=== PATIENT | female | born 1940 | race Caucasian/White ===

== ENCOUNTER 2019-03-18 06:54 | Day surgery (SDC) | payer MEDICARE, SELFPAY | END 2019-03-18 08:33 | disposition home or self-care (01) | PROVIDERS: Family Provider Family Medicine; Visit Provider Surgery | DX: Z12.11 Encounter for screening for malignant neoplasm of colon (principal); K57.30 Diverticulosis of large intestine without perforation or abscess without bleeding; D12.2 Benign neoplasm of ascending colon; G47.30 Sleep apnea, unspecified; I10 Essential (primary) hypertension; K21.9 Gastro-esophageal reflux disease without esophagitis; E78.5 Hyperlipidemia, unspecified; M19.90 Unspecified osteoarthritis, unspecified site; Z90.49 Acquired absence of other specified parts of digestive tract; E03.9 Hypothyroidism, unspecified; Z79.891 Long term (current) use of opiate analgesic; Z79.82 Long term (current) use of aspirin; G47.33 Obstructive sleep apnea (adult) (pediatric); Z83.3 Family history of diabetes mellitus; Z82.49 Family history of ischemic heart disease and other diseases of the circulatory system; M06.9 Rheumatoid arthritis, unspecified; Z87.891 Personal history of nicotine dependence | CPT/HCPCS: 45380; 88305; J2704 ==

== ENCOUNTER 2019-06-29 08:45 | Outpatient (RCR) | payer MEDICARE, SELFPAY | END 2019-07-21 00:01 | LOC: SPT 08:45 | PROVIDERS: Family Provider Family Medicine; Visit Provider Specialist | DX: Z47.89 Encounter for other orthopedic aftercare (principal) | CPT/HCPCS: 97140 ×7; 97161 ==

== ENCOUNTER 2019-07-22 06:00 | Outpatient (RCR) | payer MEDICARE, SELFPAY | END 2019-08-21 23:59 | disposition home or self-care (01) | LOC: SPT 06:00 | PROVIDERS: Family Provider Family Medicine; PCP Family Medicine; Visit Provider Family Medicine | DX: Z47.1 Aftercare following joint replacement surgery (principal); Z96.611 Presence of right artificial shoulder joint | CPT/HCPCS: 97110; 97140 ==

== ENCOUNTER → 2019-08-03 15:16 | Outpatient (BNVA) | payer MEDICARE, SELFPAY | PROVIDERS: Family Provider Family Medicine; PCP Family Medicine; Visit Provider Specialist | DX: Z96.611 Presence of right artificial shoulder joint (principal) | CPT/HCPCS: 73030 ==

== ENCOUNTER 2019-08-19 07:51 | Outpatient (CLI) | payer MEDICARE, SELFPAY ==
--- NOTE | 2019-08-19 07:57 | US_ITS ---
WS: [id number] ULTRASOUND THYROID TECHNIQUE: Ultrasound of the thyroid. CLINICAL INFORMATION: THYROID NODULE COMPARISON: August 21, 2018 FINDINGS: Thyroid: Right and left thyroid lobes are enlarged and heterogeneous consistent with goiter. Multinod ular thyroid gland with multiple complex cystic and solid nodules. Calcified nodule in the thyroid is thmus is stable in appearance. Right thyroid lobe: 3.4 cm x 1.3 cm x 2.0 cm Largest nodule in the right lobe measures 1.0 x 0.5 x 1.0 cm Left thyroid lobe: 3.8 cm x 1.7 cm x 1.8 cm. Largest nodule in the left thyroid measures 1.1 x 0.7 x 1.0 CM Isthmus: 0.4 mm. Cervical lymphadenopathy: None. US/US thyroid 40996 IMPRESSION: Thyroid goiter with multiple cystic and solid nodules similar in appearance to the prior examination
== END 2019-08-19 07:52 | disposition home or self-care (01) ==
LOC: US 07:55
PROVIDERS: Family Provider Family Medicine; PCP Family Medicine; Visit Provider Family Medicine
DX: E04.2 Nontoxic multinodular goiter (principal)
CPT/HCPCS: 76536

== ENCOUNTER 2019-08-22 06:00 | Outpatient (RCR) | payer MEDICARE, SELFPAY | END 2019-09-19 23:59 | disposition home or self-care (01) | LOC: SPT 06:00 | PROVIDERS: Family Provider Family Medicine; PCP Family Medicine; Visit Provider Family Medicine | DX: Z47.1 Aftercare following joint replacement surgery (principal); Z96.611 Presence of right artificial shoulder joint; M25.511 Pain in right shoulder; M25.611 Stiffness of right shoulder, not elsewhere classified | CPT/HCPCS: 97110 ==

== ENCOUNTER → 2019-08-31 13:32 | Outpatient (BNVA) | payer MEDICARE, SELFPAY | PROVIDERS: Family Provider Family Medicine; PCP Family Medicine; Visit Provider Specialist | DX: Z98.890 Other specified postprocedural states (principal) | CPT/HCPCS: 73030 ==

== ENCOUNTER 2019-09-20 06:00 | Outpatient (RCR) | payer MEDICARE, SELFPAY | END 2019-10-20 23:59 | disposition home or self-care (01) | LOC: SPT 06:00 | PROVIDERS: Family Provider Family Medicine; PCP Family Medicine; Visit Provider Family Medicine | DX: Z47.1 Aftercare following joint replacement surgery (principal); Z96.611 Presence of right artificial shoulder joint; M25.511 Pain in right shoulder; M25.611 Stiffness of right shoulder, not elsewhere classified | CPT/HCPCS: 97110 ==

== ENCOUNTER 2019-10-21 06:00 | Outpatient (RCR) | payer MEDICARE, SELFPAY | END 2019-11-19 23:59 | disposition home or self-care (01) | LOC: SPT 06:00 | PROVIDERS: Family Provider Family Medicine; PCP Family Medicine; Visit Provider Family Medicine | DX: Z47.89 Encounter for other orthopedic aftercare (principal); Z96.611 Presence of right artificial shoulder joint | CPT/HCPCS: 97110 ==

== ENCOUNTER → 2019-10-26 12:36 | Outpatient (BNVA) | payer MEDICARE, SELFPAY | PROVIDERS: Family Provider Family Medicine; PCP Family Medicine; Visit Provider Specialist | DX: Z98.890 Other specified postprocedural states (principal); Z96.611 Presence of right artificial shoulder joint | CPT/HCPCS: 73030 ==

== ENCOUNTER 2019-11-20 06:00 | Outpatient (RCR) | payer MEDICARE, SELFPAY | END 2019-12-20 23:59 | disposition home or self-care (01) | LOC: SPT 06:00 | PROVIDERS: PCP Family Medicine; Visit Provider Family Medicine | DX: Z47.1 Aftercare following joint replacement surgery (principal); Z96.611 Presence of right artificial shoulder joint; M25.511 Pain in right shoulder; M25.611 Stiffness of right shoulder, not elsewhere classified | CPT/HCPCS: 97110 ==

== ENCOUNTER 2019-12-21 06:00 | Outpatient (RCR) | payer MEDICARE, SELFPAY | END 2020-01-19 23:59 | disposition home or self-care (01) | LOC: SPT 06:00 | PROVIDERS: PCP Family Medicine; Visit Provider Family Medicine | DX: Z47.89 Encounter for other orthopedic aftercare (principal); Z96.611 Presence of right artificial shoulder joint | CPT/HCPCS: 97110 ==

== ENCOUNTER → 2020-01-11 08:12 | Outpatient (BNVA) | payer MEDICARE, SELFPAY | PROVIDERS: PCP Family Medicine; Visit Provider Specialist | DX: M25.531 Pain in right wrist (principal) | CPT/HCPCS: 73110 ==

== ENCOUNTER 2020-01-20 06:00 | Outpatient (RCR) | payer MEDICARE, SELFPAY | END 2020-02-19 23:59 | disposition home or self-care (01) | LOC: SPT 06:00 | PROVIDERS: PCP Family Medicine; Visit Provider Family Medicine | DX: Z47.89 Encounter for other orthopedic aftercare (principal); Z96.611 Presence of right artificial shoulder joint | CPT/HCPCS: 97110 ==

== ENCOUNTER 2020-02-02 09:18 | Outpatient (CLI) | payer MEDICARE, SELFPAY ==
--- NOTE | 2020-02-02 09:26 | MM_ITS ---
WS: [id number] Bilateral diagnostic digital mammogram, 02/02/2020 Clinical Data: Right breast lump Comparison: 11/25/2018, 11/21/2017, 11/19/2016, 11/17/2015, 11/15/2014, 11/05/2013, 11/04/2012, 09/12/2011, 09/11, 09/01/2009, 08/31/2008, 08/27/2007, 07/23/2006. Findings: The breast parenchyma shows fat replacement. The left breast is normal. There is a marker in the uppe r outer quadrant of the right breast but no abnormalities are seen. There are no spiculated masses or clustered calcifications. There are no secondary signs of carcinoma. MM/[place] [id number] Impression: 1. Recommend additional views of the right breast including an ML and exaggera camron CC. 2. Recommend right breast ultrasound in the upper outer quadrant. BIRADS: 0-Incomplete: Need additional imaging evaluation FOLLOW UP: See Report The CAD controlled area checker was used.
== END 2020-02-02 09:19 | disposition home or self-care (01) ==
LOC: RADSHAW 09:23
PROVIDERS: PCP Family Medicine; Visit Provider Family Medicine
DX: Z12.31 Encounter for screening mammogram for malignant neoplasm of breast (principal); N63.10 Unspecified lump in the right breast, unspecified quadrant
CPT/HCPCS: 77067

== ENCOUNTER 2020-02-03 09:03 | Outpatient (CLI) | payer MEDICARE, SELFPAY ==
--- NOTE | 2020-02-03 13:00 | PC.NURSE ---
0900 Patient here for Covid pre op testing. Patient verified via name and date of . Full PPE in place to include goggles, gloves, gown and N95 mask. Specimen collected, labeled and taken to lab. Patient tolerated procedure well.
[2020-02-04 13:30] LABS: Coronavirus Lab Test PTC Negative
== END 2020-02-03 09:04 | disposition home or self-care (01) ==
PROVIDERS: PCP Family Medicine; Visit Provider Specialist
DX: Z01.812 Encounter for preprocedural laboratory examination (principal)
CPT/HCPCS: 87635

== ENCOUNTER 2020-02-05 08:05 | Day surgery (SDC) | payer MEDICARE, SELFPAY ==
[2020-02-04 07:12] VITALS: BMI 34.0
[2020-02-04 14:29] VITALS: BMI 34.0
[2020-02-05 08:38] VITALS: BP 199/84; PULSE 51; RESP 18; TEMP 36.1; O2SAT 98
[2020-02-05] MEDS: sodium chloride 0.9% 1,000 ML 30 ML IV (08:48)
[2020-02-05] MEDS: CELEcoxib 200 mg Capsule 400 MG PO (08:49)
--- NOTE | 2020-02-05 09:39 | ANES.PREANE2 ---
Pre-Anesthetic Assessment Pre-Anesthetic Assessment: Height/Weight: Height 1.7 m Weight 98.43 kg Temp Pulse Resp BP Pulse Ox 96.9 F L 51 L 18 199/84 98 02/05/20 08:38 02/05/20 08:38 02/05/20 08:38 02/05/20 08:38 02/05/20 08:38 Preop Diagnosis: Right de Quervain's and long trigger finger Proposed Procedure: Operation Date: 02/05/20 09:20 Proposed Procedures p Long Trigger Finger Release 97163 57570 M65.4 M65.331(Right) - Shelley Romeo MD s Dequervain Release(Right) - Shelley Romeo MD Familial anesthetic complications: none Was Beta Samia taken within 24 hours: Yes Last intake: Intake Last Liquid Date 02/04/20 Last Liquid Time 19:00 Last Solid Date 02/04/20 Last Solid Time 19:00 Last Intake: 06:30 Social: Social History: No alcohol and No tobacco Exam: Pre-Anes Outpt Exam: alert, oriented x 3, clear to auscultation bilaterally and regular rate & rhythm Airway: Submandibular: WNL Cervical ROM: WNL MP: 1 Dentition: Full Pulmonary: Pulmonary: Sleep apnea (CPAP) CV/HEM: CV/HEM: HTN : : None reported Hepatic: Hepatic: None reported GI: GI: GERD (controlled) Metabolic: Metabolic: Hyperlipidemia and Thyroid Musc/skel: Musc/skel: OA/DJD Neuropsych: Neuropsych: None reported Anesthetic Plan: ASA status: 2 Anesthesia: Eval. for regional block and MAC Risk of > 500 ml blood loss (7ml/kg in children): No Meds/Allergies Current Medications: Current Medications Generic Name Dose Route Start Last Admin Trade Name Freq PRN Reason Stop Dose Admin Sodium Chloride 1,000 mls @ 30 ml s/hr 02/05/20 08:15 02/05/20 08:48 Sodium Chloride 0.9% IV 02/06/20 08:14 30 mls/hr .Q24H TOMAS Administration PFSH Anesthesia PFSH: Medical History Diverticulitis Primary osteoarthritis of right shoulder Venous insufficiency Ventral incisional hernia Surgical History Status post reverse total arthroplasty of right shoulder Social History Smoking and tobacco status: former smoker Alcohol intake: never Data Anesthesia Cardiac Studies: No Data to Display
[2020-02-05 11:01] VITALS: BP 166/71; PULSE 53; RESP 18; TEMP 36.1; O2SAT 95
--- NOTE | 2020-02-05 11:05 | ANE.PACU2 ---
Inpatient post-anesthesia follow up: Airway intact: Yes Vital signs: Temperature 96.9 F Pulse Rate 51 Respiratory Rate 18 Blood Pressure 199/84 Pulse Oximetry 98 Oxygen Delivery Me thod Room Air Oxygen Flow Rate Fraction of Inspir ed Oxygen Hydration adequate: Yes Nausea and vomiting: No Pain level: 1 Mental status: Baseline
--- NOTE | 2020-02-05 11:17 | PM.OP ---
Operative Report Date of procedure: February 05, 2020 Pre-op Diagnosis: Right de Quervain's and long trigger finger Associated Problem List Diagnoses (1) De Quervain's tenosynovitis, right: (2) Trigger finger, right middle finger:
[2020-02-05 11:25] VITALS: BP 185/70; PULSE 47; RESP 18; O2SAT 97
--- NOTE | 2020-02-05 11:25 | P.OP_ITS ---
Operative Report Date of procedure: February 05, 2020 Pre-op Diagnosis: Right de Quervain's and long trigger finger Post-op diagnosis: same Post-op Findings: Very inflamed de Quervain's canal Procedure Done: Right de Quervain's tenosynovitis release with release right long trigger finger Specimens removed/disposition: None Pathology: none sent Surgeon: Shelley Romeo Anesthesia: MAC (With [place] block) Estimated blood loss (mL): 5 Tourniquet time (min): 49 IV fluids (mL): 400 Urine output (mL): 0 Urine output: No Goldberg Complications: None Condition: stable Disposition: same day Brief History: This 79-year-old woman presented with complaints of severe pain in the right wrist. She also had triggering of the right long finger which was quite painful as well. After discussion, the patient wished to proceed with de Quervain's tenosynovitis release as well as release of the right long finger triggering. Risks and complications were discussed with her. She understood and wished to proceed. Procedure: Patient was brought to the operating theater. She was placed on the operating room table. A Agustin block supplemented with MAC anesthesia was administered without difficulty. Patient tolerated it well. A tourniquet was placed high on the arm and was elevated for the [place] block. The [place] block was administered per anesthesia. The patient's right upper extremity was prepped and draped in usual fashion utilizing DuraPrep. It was draped free. Tourniquet time was 49 minutes. Surgical pause was performed prior to commencement of the surgical procedure. At the time of the surgical pause we identified the site and side of surgery. We also identified the patient's identity and appropriate administration of IV antibiotics. The radial styloid was palpated and an incision was made horizontally approximately 1 cm proximal to the tip of the radial styloid. Dissection continued through the skin and dermis but following that soft tissue blunt dissection was accomplished to prevent injury to the superficial radial nerve branches in the area. We were able to retract these branches and the first dorsal compartment was visualized. The fibrous tissue over the first dorsal compartment was noted to be quite thickened and erythematous. This was released longitudinally using a combination of scalpel and scissors. We then confirmed that each of the tendons at been released. There were 2 abductor pollicis longus tendons and one extensor pollicis brevis tendon. All of these were released at least a centimeter distal to the radial styloid and proximally as well. There was no further compression across the tendons. The tendons were pulled up out of the tunnel for evaluation. Following this, the wound was irrigated. Attention was then directed to closure. Closure was accomplished with 3-0 Monocryl as a subcuticular suture was placed in a running fashion. We injected the wound with local anesthetic. This was followed by Exofin, Telfa and a Tegaderm. An incision then was made along the distal palmar crease beneath the long finger. Dissection continued through the skin to the subcutaneous tissues using a scalpel. Blunt dissection was then utilized to spread soft tissues and allow access to the A1 ernie. The A1 ernie was identified. It was then incised longitudinally and sharply using a knife. This was accomplished without difficulty and atraumatically. Once the A1 ernie was released, tendons were brought up out of the wound and evaluated. There were no gross masses on the tendons. Tendons were returned to normal position. We then irrigated the wound and subsequently closed it with 3-0 nylon with an interrupted mattress type suture. We injected the wound with local anesthetic. This was followed by Exofi n, Telfa and a Tegaderm. Further sterile dressing was then placed consisting of fluffed fluffs, sterile soft roll, and an Bobo wrap. The patient was returned to recovery in satisfactory condition. She will be discharged home to follow-up with me in the office. There were no complications and no specimens. Associated Problem List Diagnoses (1) De Quervain's tenosynovitis, right: (2) Trigger finger, right middle finger:
--- NOTE | 2020-02-08 11:39 | P.HPUD_ITS ---
Surgery/Procedure H&P Update DATE OF PROCEDURE: February 05, 2020 DATE H&P PERFORMED: 02/01/20 H&P UPDATE INFORMATION: I have reviewed H&P completed within last 30 days, Changes to prior documentation as noted here and H&P is in [facility] EMR on date indicated PREOP DIAGNOSIS: Right de Quervain's and long trigger finger PLANNED PROCEDURE: Operation Date: 02/05/20 09:20 Proposed Procedures p Long Trigger Finger Release [id number] 99048 M65.4 M65.331(Right) - Shelley Romeo MD s Dequervain Release(Right) - Shelley Romeo MD Related Problem List Diagnoses (1) De Quervain's tenosynovitis, right: (2) Trigger finger, right middle finger:
== END 2020-02-05 11:47 | disposition home or self-care (01) ==
PROVIDERS: PCP Family Medicine; Visit Provider Specialist
PROC: (CPT 26055; principal; 2020-02-05 09:20)
PROC: (CPT 25000; 2020-02-05 09:20)
DX: M65.4 Radial styloid tenosynovitis [de Quervain] (principal); M65.331 Trigger finger, right middle finger; G47.30 Sleep apnea, unspecified; I10 Essential (primary) hypertension; K21.9 Gastro-esophageal reflux disease without esophagitis; E78.5 Hyperlipidemia, unspecified; M19.90 Unspecified osteoarthritis, unspecified site; Z87.891 Personal history of nicotine dependence; Z79.82 Long term (current) use of aspirin
CPT/HCPCS: 25000; 26055; 12345; 96365; J0131; J2704; J3010; J3490; J7030

== ENCOUNTER 2020-02-17 07:37 | Outpatient (CLI) | payer MEDICARE, SELFPAY ==
--- NOTE | 2020-02-17 07:38 | US_ITS ---
WS: [id number] ADDITIONAL VIEWS RIGHT BREAST RIGHT breast ultrasound, limited HISTORY: RT BREAST MASS COMPARISON: None available. Compression views right CC and MLO projection. True ML also submitted. Triangular marker is placed at the RIGHT axillary tail. There is no mass. Benign lymph nodes are note d towards the axilla posteriorly. No suspicious calcifications or distortion. RIGHT breast ultrasound. Ultrasound is directed to the palpable abnormality. No suspicious masses or distortion. No solid or c ystic changes. US/US breast RT limited* [id number] IMPRESSION: BI-RADS: 2-Benign FOLLOW-UP: 1 Year Follow-up
== END 2020-02-17 07:38 | disposition home or self-care (01) ==
PROVIDERS: PCP Family Medicine; Visit Provider Family Medicine
DX: N63.10 Unspecified lump in the right breast, unspecified quadrant (principal)
CPT/HCPCS: 76642; 77065

== ENCOUNTER 2020-02-20 06:00 | Outpatient (RCR) | payer MEDICARE, SELFPAY | END 2020-03-21 23:59 | disposition home or self-care (01) | LOC: SPT 06:00 | PROVIDERS: PCP Family Medicine; Visit Provider Family Medicine | DX: Z96.611 Presence of right artificial shoulder joint (principal) | CPT/HCPCS: 97110; 97150 ==

== ENCOUNTER 2020-03-29 13:17 | Observation (INO) | payer MEDICARE, SELFPAY ==
[2020-03-29] VITALS (12 sets, daily range): BP systolic 138–221; BP diastolic 65–102; PULSE 58–78; RESP 16–23; TEMP 36.4–37.2; O2SAT 95–98; BMI 32.8
--- NOTE | 2020-03-29 13:28 | XRR_ITS ---
PROCEDURE INFORMATION: Exam: XR Chest, 1 View Exam date and time: 03/29/2020 2:06 PM Age: 79 years old Clinical indication: Chest pain TECHNIQUE: Imaging protocol: XR of the chest Views: 1 view. COMPARISON: CR Chest 1 [place] [id number] 11/01/2013 8:56 PM FINDINGS: Lungs: Unremarkable. No consolidation. Pleural space: Unremarkable. No pleural effusion. No pneumothorax. Heart/Mediastinum: Unremarkable. No cardiomegaly. Bones/joints: No acute findings. Bilateral shoulder prosthetics. XR/XR chest 1V portable [id number] IMPRESSION: No acute findings.
--- NOTE | 2020-03-29 13:30 | ECG_ITS ---
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 Measurements Intervals [place] Rate: 63 P: 11 MS: 119 QRS: 29 QRSD: 106 T: 47 QT: 390 QTc: 400 Interpretive Statements SINUS RHYTHM WITH SHORT MS INTERVAL WITH OCCASIONAL VENTRICULAR PREMATURE COMPLEXES Compared to ECG 06/05/2019 12:52:48 Short MS interval now present Sinus bradycardia no longer present Electronically Signed On 03-29-2020 17:01:56 CDT by Mecca Lemus M.D. [id number] f
--- NOTE | 2020-03-29 13:50 | W.ED.CHESTPA ---
HPI - Chest Pain General: Chief Complaint: Chest Pain Stated Complaint: cardiac symptoms Time Seen by Provider: 03/29/20 13:28 History of Present Illness: HPI narrative: 79-year-old female was exercising at physical therapy and began to have chest pain in the center of her chest it is nonradiating does not make her nausea but nauseous but it is causing her to be somewhat dyspneic. She has been having this intermittently for some time and she has a stress test scheduled. She has risk factors of age and history of hypertension she is not diabetic. No previous coronary artery disease. The chest pain episodes have been increasing in intensity and frequency over the last several weeks. MD complaint: chest pain Onset (ago): minute(s) Timing of current episode: episodic and increasing Prior episodes: Yes Onset: during exertion Pain location: substernal and left chest Severity: moderate Quality: heaviness Relieving factors: rest Exacerbating factors: exertion Associated symptoms: Reports diaphoresis, dyspnea and nausea; Deny abdominal pain, fever(s), leg edema, palpitations or vomiting Treatment prior to arrival: none Review of Systems Const: Reports: diaphoresis; Denies: fever(s) ENMT: Denies: throat pain, ear or mastoid pain, nasal discharge or nasal congestion Card: Denies: palpitations Resp: Reports: dyspnea GI: Reports: nausea; Denies: abdominal pain or vomiting : Denies: flank pain, difficulty voiding, dysuria, urinary frequency or urinary urgency Skin/Breast: Denies: rash or pruritus PFSH ED PFSH: Medical History De Quervain's tenosynovitis, right Diverticulitis Hyperlipidemia Hypertension Primary osteoarthritis of right shoulder Trigger finger, right middle finger Venous insufficiency Ventral incisional hernia Surgical History Status post reverse total arthroplasty of right shoulder Social History Smoking and tobacco status: former smoker Alcohol intake: never Physical Exam Const: COMMON NORMALS: no acute distress GENERAL APPEARANCE: cooperative and comfortable ORIENTATION/CONSCIOUSNESS: Yes awake, Yes oriented to person, Yes oriented to place and Yes oriented to time HENMT: COMMON NORMALS: normocephalic, atraumatic and hearing grossly normal bilaterally HEAD & SCALP: normocephalic and atraumatic Eye: COMMON NORMALS: Equal, round and reactive pupils present, EOMs intact bilaterally, conjunctivae normal and no scleral icterus CONJUNCTIVA: Yes conjunctivae normal PUPIL: Yes Equal, round and reactive pupils present Neck/C-Spine: COMMON NORMALS: full ROM, no lymphadenopathy, supple and no JVD Lymph: LYMPHATIC: no lymphadenopathy noted and no lymphedema noted Resp: COMMON NORMALS: normal respiratory effort, No retractions, No use of accessory muscles and clear to auscultation bilaterally AUSCULTATION: clear to auscultation bilaterally Cardio: COMMON NORMALS: no JVD, regular rate, regular rhythm and No murmurs present (Cardio) RATE: regular rate RHYTHM: regular rhythm GI: COMMON NORMALS: Soft to palpation and No hepatosplenomegaly present AUSCULTATION: Yes normoactive bowel sounds PALPATION: Yes Soft to palpation, No Tenderness to palpation present (GI), No Guarding due to palpation present (GI) and Yes No hepatosplenomegaly present Extremity: COMMON NORMALS: normal to inspection, capillary refill normal, no clubbing, cyanosis or edema, no calf tenderness and no pedal edema Neuro: SENSORIUM/ORIENTATION: Yes oriented to person, Yes oriented to place and Yes oriented to time Skin: COMMON NORMALS: no rashes or lesions noted GENERAL SKIN EXAM: no rashes or lesions noted Course Vital Signs: Vital signs: Vital Signs Temperature 99.2 F 03/30/20 17:25 Pulse Rate 64 03/30/20 17:25 Respiratory Rate 16 03/30/20 17:25 Blood Pressure 142/64 03/30/20 17:25 Pulse Oximetry 95 03/30/20 17:25 MDM - Chest Pain MDM Narrative: Medical decision making narrative: Discussed with Dr. Chaparro will admit for rule out and cardiac evaluation he will be attending orders have been written. Lab Data: Labs: Lab Results 03/29/20 03/29/20 03/29/20 Range/Units 13:55 13:55 13:55 WBC 7.8 (4.0-10.0) 10^3/ uL RBC 4.56 (4.1-5.3) 10^6/u L Hgb 13.5 (11.5-15.3) g/dL Hct 42.3 (37.0-47.0) % MCV 92.8 (81-99) fL MCH 29.6 (28.0-34.0) pg MCHC 31.9 (30.0-36.0) g/dL RDW 13.4 (12.1-15.1) % Plt Count 210 (130-400) 10^3/c mm MPV 10.0 (7.4-10.4) fL Neut % (Auto) 60.8 % Lymph % (Auto) 29.3 % [place] % (Auto) 7.7 % Eos % (Auto) 1.7 % Baso % (Auto) 0.4 % Neut # (Auto) 4.71 (1.8-7.7) 10^3/u L Lymph # (Auto) 2.3 (0.8-4.8) 10^3/u L [place] # (Auto) 0.6 (0.2-0.9) 10^3/u L Eos # (Auto) 0.1 (0.0-0.8) 10^3/u L Baso # (Auto) 0.0 (0.0-0.1) 10^3/u L Nucleated RBC % (a uto) 0 % Nucleated RBCs # 0.0 /100WBC Sodium 138 (136-145) mmol/L Potassium 4.3 (3.5-5.1) mmol/L Chloride 103 (98-107) mmol/L Carbon Dioxide 25 (22-29) mmol/L Anion Gap 14.3 (5-19) BUN 18 (8-23) mg/dL Creatinine 0.6 (0.5-0.9) mg/dL GFR Calculation Not Reportable Glucose 94 (65-115) mg/dL Calculated Osmolal ity 282 L (285-295) mOsm/k g Calcium 10.2 (8.5-10.5) mg/dL Total Bilirubin 0.8 (0.15-1.2) mg/dL AST 21 (0-32) U/L ALT 14 (0-33) U/L Alkaline Phosphata se 76 (35-105) IU/L Troponin T Baselin e 12 H (0-10) ng/L Total Protein 6.8 (6.6-8.7) g/dL Albumin 4.2 (3.5-5.2) g/dL Globulin 2.6 (1.3-4.6) g/dL Discharge Plan Discharge Patient Disposition: Admitted As Inpatient Admit Provider: Nader Sommer Condition: Stable Referrals: Nader Sommer MD [Primary Care Provider] - 1-3 days ([facility] will contact you to schedule an follow-up appointment for Saturday, . If you haven't heard from them by tomorrow afternoon. Please call ) Discharge Diet: Regular Discharge Activity: Resume usual activity Patient Instructions: Isosorbide Mononitrate (By mouth), Escitalopram (By mouth), Chest Pain (DC), Chest Pain Stoplight Additional Instructions: - Call clinic tomorrow to make an appointment for Sunday 04/01 - take all of your home medications the same - 2 new medications of Lexapro 10 mg once a day for stress; Isosorbide 30mg once a day - call if increased chest pain or pressure. Discharge Date/Time: 03/29/20 17:19 Coding Level of Care Code ED Polisher Eyeglass Frames for David Ahumada
[2020-03-29 14:11] LABS: Basophils % 0.4 %; Eosinophils # 0.1 10^3/uL (0.0-0.8); Eosinophils % 1.7 %; Hematocrit 42.3 % (37.0-47.0); Hemoglobin 13.5 g/dL (11.5-15.3); Lymphocytes # 2.3 10^3/uL (0.8-4.8); Lymphocytes % 29.3 %; Mean Corpuscular HGB Conc 31.9 g/dL (30.0-36.0); Mean Corpuscular Hemoglobin 29.6 pg (28.0-34.0); Mean Corpuscular Volume 92.8 fL (81-99); Monocytes # 0.6 10^3/uL (0.2-0.9); Monocytes % 7.7 %; Neutrophils # 4.71 10^3/uL (1.8-7.7); Neutrophils % 60.8 %; Nucleated Red Blood Cells % 0 %; Platelet Count 210 10^3/cmm (130-400); Red Blood Count 4.56 10^6/uL (4.1-5.3); Red Cell Distribution Width 13.4 % (12.1-15.1); White Blood Count 7.8 10^3/uL (4.0-10.0)
--- NOTE | 2020-03-29 14:26 | PC.NURSE ---
INFORMED DR. PAEZ OF BP OF 221/90 VERBALIZED THAT HE WOULD PUT MEDICATION IN TO [place] BP.
[2020-03-29] MEDS: amlodipine 10 mg Tablet PO (14:29)
[2020-03-29] MEDS: hyDRALAzine 20 mg/mL INJ 1 mL IVP (14:29)
[2020-03-29 14:33] LABS: Alanine Aminotransferase 14 U/L (0-33); Albumin Level 4.2 g/dL (3.5-5.2); Alkaline Phosphatase 76 IU/L (35-105); Anion Gap 14.3 (5-19); Aspartate Amino Transferase 21 U/L (0-32); Blood Urea Nitrogen 18 mg/dL (8-23); Calcium 10.2 mg/dL (8.5-10.5); Carbon Dioxide 25 mmol/L (22-29); Chloride 103 mmol/L (98-107); Globulin 2.6 g/dL (1.3-4.6); Glucose 94 mg/dL (65-115); Osmolality Calculated 282 mOsm/kg (285-295); Potassium 4.3 mmol/L (3.5-5.1); Sodium 138 mmol/L (136-145); Total Bilirubin 0.8 mg/dL (0.15-1.2); Total Protein 6.8 g/dL (6.6-8.7)
[2020-03-29 14:35] LABS: Troponin(5th) Baseline 12 ng/L (0-10)
--- NOTE | 2020-03-29 15:30 | ECG_ITS ---
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 Measurements Intervals [place] Rate: 60 P: 56 MI: 160 QRS: 34 QRSD: 110 T: 46 QT: 397 QTc: 399 Interpretive Statements SINUS RHYTHM Compared to ECG 03/29/2020 13:24:40 Short MI interval no longer present Electronically Signed On 03-29-2020 22:58:07 CDT by Mecca Lemus M.D. [id number]
[2020-03-29] MEDS: aspirin 81 mg Chew Tablet 324 MG PO (15:39)
[2020-03-29] MEDS: nitroglycerin 1 gm/inch oint Pkt 1 INCH TOPICAL (15:40)
[2020-03-29 16:09] LABS: Troponin 5 2HR 12.06 ng/L (0-10); Troponin 5 2HR Delta 0.06 ABS# (0-10)
--- NOTE | 2020-03-29 17:06 | PC.NURSE ---
ATTEMPTED REPORT NURSE UNAVAILABLE.
--- NOTE | 2020-03-29 19:23 | ECG_ITS ---
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 Interpretive Statements NAME OF STUDY: LEXISCAN SESTAMIBI STRESS TEST INDICATION: Chest Pain, ekg changes, NOTE: Please note that this is the electrocardiogram portion of the Lexiscan/Sestamibi stress test. The perfusion scan will be documented separately. DATA: Baseline heart rate was 87 beats per minute. Baseline blood pressure was 139/65 millimeters of mercury. Target heart rate was 143. Maximum heart rate achieved was 97. which was 67 % of the predicted target heart rate. Maximum blood pressure was millimeters of mercury. The reason for ending the test was completion of the protocol. The patient did not experience any symptoms. ELECTROCARDIOGRAM: BASELINE: Sinus rhythm. Normal axis. Frequent PVCs, otherwise no ST-T changes suggestive of ischemia noted. No arrhythmia noted. EXERCISE: After Lexiscan injection, no ST-T changes suggestive of ischemic noted. No arrhythmia noted. CONCLUSION: Please note due to baseline abnormality of the EKG specificity and sensitivity of the EKG portion of LexiScan MIBI stress test will be low 1. EKG not suggestive of ischemia 2. Lexiscan injection unremarkable. 3. Perfusion scan will be documented separately. Electronically Signed On 04-01-2020 16:51:39 CDT by Lm Lopez M.D. [email or web address].[employer]/store/OM/[id number]
--- NOTE | 2020-03-29 19:30 | ECG_ITS ---
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 Measurements Intervals [place] Rate: 62 P: 60 FL: 169 QRS: 44 QRSD: 106 T: 55 QT: 397 QTc: 404 Interpretive Statements SINUS RHYTHM Compared to ECG 03/29/2020 17:44:28 No significant changes Electronically Signed On 03-29-2020 22:47:51 CDT by Mecca Lemus M.D. [id number]
--- NOTE | 2020-03-29 20:23 | PC.NURSE ---
Called Dr. Sommer Regwillarding patient request for CPAP. Orders recieved for Cpap and use patients settings.
[2020-03-29 20:26] LABS: Troponin 5 6HR 13.93 ng/L (0-10); Troponin 5 6HR Delta 1.93 ng/L (0-12)
[2020-03-29] MEDS: losartan 50 mg Tablet 100 MG PO (21:49)
[2020-03-30] VITALS (7 sets, daily range): BP systolic 105–145; BP diastolic 48–79; PULSE 64–76; RESP 16–18; TEMP 36.5–37.3; O2SAT 93–96
[2020-03-30 05:09] LABS: Basophils % 0.2 %; Eosinophils # 0.1 10^3/uL (0.0-0.8); Hematocrit 40.3 % (37.0-47.0); Hemoglobin 13.2 g/dL (11.5-15.3); Lymphocytes % 20.6 %; Mean Corpuscular HGB Conc 32.8 g/dL (30.0-36.0); Mean Corpuscular Hemoglobin 29.6 pg (28.0-34.0); Mean Corpuscular Volume 90.4 fL (81-99); Mean Platelet Volume 10.6 fL (7.4-10.4); Monocytes # 0.7 10^3/uL (0.2-0.9); Monocytes % 7.3 %; Neutrophils # 6.73 10^3/uL (1.8-7.7); Neutrophils % 70.7 %; Nucleated Red Blood Cells % 0 %; Platelet Count 208 10^3/cmm (130-400); Red Blood Count 4.46 10^6/uL (4.1-5.3); Red Cell Distribution Width 13.6 % (12.1-15.1); White Blood Count 9.5 10^3/uL (4.0-10.0)
[2020-03-30 05:31] LABS: Alanine Aminotransferase 14 U/L (0-33); Albumin Level 4.1 g/dL (3.5-5.2); Alkaline Phosphatase 67 IU/L (35-105); Anion Gap 14.3 (5-19); Aspartate Amino Transferase 18 U/L (0-32); Blood Urea Nitrogen 19 mg/dL (8-23); Calcium 9.3 mg/dL (8.5-10.5); Carbon Dioxide 24 mmol/L (22-29); Chloride 106 mmol/L (98-107); Globulin 1.7 g/dL (1.3-4.6); Glucose 118 mg/dL (65-115); Osmolality Calculated 288 mOsm/kg (285-295); Potassium 4.3 mmol/L (3.5-5.1); Sodium 140 mmol/L (136-145); Total Protein 5.8 g/dL (6.6-8.7)
--- NOTE | 2020-03-30 05:50 | PC.NURSE ---
End of Shift: Patient has had a uneventful shift. Patient has had no complaints. Will continue to [facility]. Patient remains alert and oriented.
[2020-03-30 06:06] LABS: Slide Review Slide Review Perform
[2020-03-30] MEDS: regadenoson 0.4 Mg/5 ml Syringe IVP (07:49)
[2020-03-30] MEDS: levothyroxine 100 mcg Tablet PO (09:46)
[2020-03-30] MEDS: multivitamin therapeutic Tablet 1 TAB PO (09:46)
--- NOTE | 2020-03-30 09:51 | USCV_ITS ---
Man Barbra Age: 79 Gender: F : 1940 Exam Date: 03/30/2020 12:44 Ordering Phys: Nader Sommer MD Technologist: Marcelo Castro Exam Location: [facility] Indication: CHEST PAIN BP: 128 / 60 HR: 65 Rhythm: Sinus Technical Quality: Fair MEASUREMENTS (Male / Female) Normal Values 2D ECHO LV Diastolic Diameter PLAX 3.8 cm 4.2 - 5.9 / 3.9 - 5.3 cm LV Systolic Diameter PLAX 2.2 cm IVS Diastolic Thickness 0.8 cm 0.6 - 1.0 / 0.6 - 0.9 cm IVS Systolic Thickness 1.2 cm LVPW Diastolic Thickness 1.0 cm 0.6 - 1.0 / 0.6 - 0.9 cm LVPW Systolic Thickness 1.3 cm LVOT Diameter 2.1 cm LV Ejection Fraction 2D Teich 73.7 % LV Ejection Fraction MOD 2C 70.7 % LV Ejection Fraction 2C AL 71.7 % LA Diameter 3.2 cm LA Width 4.0 cm LA Height 4.7 cm RA Width 3.6 cm RA Height 3.7 cm Aorta at Sinotubular Diameter 1.1 cm M-MODE LV Diastolic Diameter MM 5.8 cm 4.2 - 5.9 / 3.9 - 5.3 cm LV Systolic Diameter MM 3.1 cm LV Ejection Fraction MM Teich 78.2 % IVS Diastolic Thickness MM 0.6 cm 0.6 - 1.0 / 0.6 - 0.9 cm IVS Systolic Thickness MM 1.2 cm LVPW Diastolic Thickness MM 1.0 cm 0.6 - 1.0 / 0.6 - 0.9 cm LVPW Systolic Thickness MM 1.6 cm RV Diastolic Diameter MM 1.0 cm Aortic Annulus Diameter 3.6 cm LA Ao Ratio MM 0.9 MV E Point Septal Separation 0.6 cm DOPPLER AV Peak Velocity 150.0 cm/s LVOT Peak Velocity 104.0 cm/s AV Area Cont Eq vti 2.5 cm squared AV Area Cont Eq pk 2.3 cm squared MV Area PHT 5.0 cm squared Mitral E to A Ratio 1.1 MV E' Velocity 7.0 cm/s Mitral E to MV E' Ratio 12.7 Mitral E to LV E' Lateral Ratio 12.5 Mitral E to LV E' Septal Ratio 12.9 TR Peak Velocity 160.0 cm/s TR Peak Gradient 10.2 mmHg TV Peak E Velocity 115.0 cm/s Right Atrial Pressure 3.0 mmHg Pulmonary Artery Systolic Pressu 13.2 mmHg PV Peak Velocity 109.0 cm/s FINDINGS Left Ventricle Normal left ventricular cavity size. Normal left ventricular systolic function. No regional wall motion abnormalities. Left ventricular ejection fraction is estimated at 60 %. Grade II/IV diastolic dysfunction, moderately elevated filling pressures. Right Ventricle The right ventricle is normal in size and function. Right Atrium The right atrium is normal in size. Left Atrium The left atrium is normal in size. Mitral Valve Moderately thickened mitral valve. Moderate mitral annular calcification. No mitral valve stenosis. No mitral valve regurgitation. Aortic Valve Moderate aortic valve calcification. No aortic valve stenosis. No aortic valve regurgitation. Tricuspid Valve Structurally normal tricuspid valve without significant stenosis or regurgitation. Pulmonary artery systolic pressure is normal. Pulmonic Valve Structurally normal pulmonic valve without significant stenosis. There is no pulmonic regurgitation. Pericardium Normal pericardium without effusion. Aorta Normal ascending aorta dimension. CONCLUSIONS 1-Normal left ventricular cavity size. Normal left ventricular systolic function. No regional wall motion abnormalities. Left ventricular ejection fraction is estimated at 60 %. Grade II/IV diastolic dysfunction, moderately elevated filling pressures. 2-Moderately thickened mitral valve. Moderate mitral annular calcification. No mitral valve stenosis. No mitral valve regurgitation. 3-Moderate aortic valve calcification. No aortic valve stenosis. No aortic valve regurgitation. 4-There is no pericardial effusion. 5-Pulmonary artery systolic pressure is within normal limits. 6-Right atrial pressure is around 5 mm of mercury. Lm Lopez MD (Electronically Signed) Final Date: 02 April 2020 11:43 S
--- NOTE | 2020-03-30 14:38 | PC.CHAP ---
Pastoral Care Encounter/Spiritual Assessment Type of Contact [] Declined commercial intern visit [] Patient/Family/Request visit [] Outpatient visit [] Follow-up visit [] Physician referral [] Code/Alert [X] Routine visit [] Staff referral [] Actively dying [] Patient sleeping [] Family support [] [] Out of room [] Palliative care [] [] Receiving care in room [] Pre-surgical visit [] Trauma [] Long length of stay [] ICU visit [] Other: Relational/Emotional Strength [] Patient feels connected with others/family/visitors/staff [] Distress [] Loneliness/isolation [] Abandonment Spirituality of Patient [] Person of Natalia [] Attends Methodist of their Natalia [] Believes in Prayer [] Reads Bible or Congregation materials [] There are Spiritual issues to be addressed Assistant Teacher Primary Interventions [] Prayer [] Active listening [] Non-anxious presence [] Spiritual/emotional support [] Crisis/trauma care [] Spiritual counseling [] Bereavement support [] Provided bereavement packet [] Provided Bible/devotional materials [] Provided toy/stuffed animal, coloring book to patient or family member [] Provided Communion [] Anointing/[place] [] Salvation [] Completed spiritual assessment [] Other: Impact on Illness or Injury [] Angry [] Fearful [] Anxious [] Often cries [] Exhaustion [] Unable to work [] Unable to attend bahai [] Unable to walk/stand [] Unable to read [] Unable to drive [] Unable to eat/drink [] Unable to sleep [] Unable to be with family [] Patient intubated [] Other: Summary Time spent with patient
--- NOTE | 2020-03-30 17:11 | P.SS_ITS ---
Short Stay Summary Providers Date of Admit/Discharge: 03/30/20 Attending Provider: Nader Sommer MD Primary Care Provider: Nader Sommer MD Chief Complaint: cardiac symptoms HPI History of Present Illness Barbra Conway is a 79 year old female who presented to my clinic yesterday with chest pressure. Also has some shortness of breath. It was mid sternal. She had a come on about 20 minutes after she had stopped her physical therapy. She has had similar pain to this off and on over the past couple years. No fevers or chills. No cough. An EKG was performed in the clinic and showed some inverted T waves in the inferior leads. This was new from findings on an EKG done 9 months earlier. Patient was given nitroglycerin and aspirin in the office and then sent immediately over to the emergency room. Repeat EKG in the emergency room showed resolution of the flipped T waves. She continued to have the pain significantly for several hours though. Seem to just go away on its own. Nitro really did not seem to relieve it. Patient overall is done well overnight. She is feeling much better this afternoon. When I saw her this morning she discussed that she has been feeling a lot more stressed out with just different events going on in the world. Wondered if this may be causing her symptoms to. Review of Systems Narrative: General: No chronic fevers or chronic weight changes. HEENT: No acute changes in vision. No acute hearing loss. No new difficulty swallowing. Heart: No coronary disease. Lungs: No history of TB. No chronic lung disease. GI: No history of GI bleeding. No hepatitis. No chronic nausea or vomitting. Renal: No dysuria or frequency. No hematuria Neuro: No acute neurological changes or deficits. Musculoskeletal: No acutely worsening joint pain or swelling. Home Meds/Allergies Home Medications and Allergies Home Medications Medication Instructions Recorded Confirmed Type aspirin 81 mg tablet,delayed 81 mg PO DAILY 08/03/19 03/29/20 History release atenolol 100 mg tablet See Rx Instructions .ROUTE .COMPLEX 08/03/19 03/29/20 History levothyroxine 100 mcg capsule 100 mcg PO DAILY 08/03/19 03/29/20 History losartan 100 mg tablet 100 mg PO BEDTIME 08/03/19 03/29/20 History magnesium citrate 100 mg tablet 400 mg PO BEDTIME 08/03/19 03/29/20 History omega-3 fatty acids 1,000 mg 1,000 mg PO BID 08/03/19 03/29/20 History capsule zolpidem 10 mg tablet 10 mg PO BEDTIME 08/03/19 03/29/20 History CoQ-10 1 tab PO DAILY 03/29/20 03/29/20 History Fiber [place] Mucil 2 tab PO DAILY 03/29/20 03/29/20 History L.acid-B.bifidum-B.animal-FOS See Rx Instructions .ROUTE .COMPLEX 03/29/20 03/29/20 History [Probiotic Complex] Vitamin C 1 tab PO DAILY 03/29/20 03/29/20 History amoxicillin See Rx Instructions .ROUTE .COMPLEX 03/29/20 03/29/20 History multivitamin [Multiple Vitamins] 1 tab PO DAILY 03/29/20 03/29/20 History turmeric 400 mg PO DAILY 03/29/20 03/29/20 History vitamin K2 1 cap PO DAILY 03/29/20 03/29/20 History Allergies Allergy/AdvReac Type Severity Reaction Status Date / Time Iodinated Contrast Media Allergy unknown Verified 03/30/20 07:42 shellfish derived Allergy unknown Verified 03/30/20 07:42 tramadol Allergy unknown Verified 03/30/20 07:42 PFSH Acute PFSH: Medical History (Updated 03/30/20 @ 17:23 by Nader Sommer MD) De Quervain's tenosynovitis, right Diverticulitis Hyperlipidemia Hypertension Primary osteoarthritis of right shoulder Trigger finger, right middle finger Venous insufficiency Ventral incisional hernia Surgical History Status post reverse total arthroplasty of right shoulder Social History Smoking and tobacco status: former smoker Alcohol intake: never Vitals/I&O/Wt Last Vital Signs Temp 99.2 F 03/30/20 16:00 Pulse 64 03/30/20 16:00 Resp 16 03/30/20 16:00 BP 142/64 03/30/20 16:00 Pulse Ox 95 03/30/20 16:00 03/30/20 03/30/20 03/30/20 06:59 14:59 22:59 Intake Total 350 / 870 702 / 702 Balance 350 / 869 702 / 702 Weight last 48 hrs Weight 210 lb Physical Exam Narrative: EXAM NARRATIVE: General: No acute distress, Alert. Well nourished. HEENT: PERRLA, EOMI. vision grossly normal. Throat clear. Neck: supple, no adenopathy. Heart: Regular rate and rhythm. No murmurs, rubs or gallops. Normal capillary refill. Lungs: Clear to auscultation. No wheezes, rhonchi or rales. Abdomen: Positive bowel sounds. Non-tender, non-distended. No hepato splenomegaly. No gaurding. Extremities: No clubbing, cyanosis, or edema. Negative Afua's. Hospital Course Hospital Course: -Chest pain -patient is admitted to the hospital for chest pain. She subsequently had a stress test performed which was negative. Echocardiogram preliminary report was negative as well. At this time we will go ahead and proceed with discharge home. Strict precautions were given. We will start isosorbide and also Lexapro for anxiety. She will follow-up with me in a couple days in the clinic. If she continues to do well and improve we may consider discontinuing isosorbide down the road. Patient has an allergy to contrast dye and had an anaphylaxis reaction with an angiogram number of years ago. This makes us reluctant to pursue further testing at this time. I discussed with her if her symptoms continue to persist we may be forced to doing this. She understands will follow-up with me closely in the clinic. SSS Data Data Completed and Pending: Completed Studies During Hospitalization Category Date Time Status Sestamibi Stress Test Request Urban ne Exams 03/29/20 19:23 Draft XR chest 1V natalya ble [id number] Stat Exams 03/29/20 13:28 Completed NM roberta perf SPECT r/s* [id number] Routin e Nuc Med 03/30/20 19:23 Completed Pending at discharge Category Date Time Status CV echo complete* [id number] Routine Ultrasound 03/30/20 09:51 Taken Discharge Plan Discharge Patient Disposition: Home Condition: Stable Prescriptions: New isosorbide mononitrate 30 mg tablet extended release 24 hr 30 mg PO DAILY Qty: 30 RF: 0 Lexapro 10 mg tablet 10 mg PO DAILY Qty: 30 RF: 0 Continued losartan 100 mg tablet 100 mg PO BEDTIME RF: 0 aspirin [Adult Low Dose Aspirin] 81 mg tablet,delayed release (DR/EC) 81 mg PO DAILY RF: 0 magnesium citrate 100 mg tablet 400 mg PO BEDTIME RF: 0 omega-3 fatty acids 1,000 mg capsule 1,000 mg PO BID RF: 0 atenolol 100 mg tablet See Rx Instructions .ROUTE .COMPLEX RF: 0 levothyroxine 100 mcg capsule 100 mcg PO DAILY RF: 0 zolpidem [Ambien] 10 mg tablet 10 mg PO BEDTIME RF: 0 Multiple Vitamins Tablet 1 tab PO DAILY RF: 0 Probiotic Complex 25 billion cell -100 mg Capsule See Rx Instructions .ROUTE .COMPLEX RF: 0 turmeric 400 mg Capsule 400 mg PO DAILY RF: 0 CoQ-10 1 tab PO DAILY RF: 0 Fiber [place] Mucil 2 tab PO DAILY RF: 0 Vitamin C 1 tab PO DAILY RF: 0 vitamin K2 1 cap PO DAILY RF: 0 amoxicillin 500 mg capsule See Rx Instructions .ROUTE .COMPLEX RF: 0 Discharge Orders: Discharge Order (Routine); Ordered 03/30/20 Ordered By: Nader Sommer Referrals: Nader Sommer MD [Primary Care Provider] - 1-3 days ([facility] will contact you to schedule an follow-up appointment for Saturday, . If you haven't heard from them by tomorrow afternoon. Please call ) Discharge Diet: Regular Discharge Activity: Resume usual activity Patient Instructions: Isosorbide Mononitrate (By mouth), Escitalopram (By mouth), Chest Pain (DC), Chest Pain Stoplight Activity Restrictions/Additional Instructions: - Call clinic tomorrow to make an appointment for Sunday 04/01 - take all of your home medications the same - 2 new medications of Lexapro 10 mg once a day for stress; Isosorbide 30mg once a day - call if increased chest pain or pressure. Attestations Medical Necessity Statement*: Patient is being discharged home today. Time Spent in Patient Care*: greater than 30 min Quality Metrics Clinical Quality Measures: During this hospital stay, did patient experience: None Coding Level of Care Code Acute Despatching And Receiving Clerk for David Ahumada
--- NOTE | 2020-03-30 19:23 | NMCV_ITS ---
NM roberta perf SPECT r/s* [id number] Barbra Conway Age: 79 Gender: F : 1940 Exam Date: 03/30/2020 06:45 Ordering Phys: Nader Sommer MD Technologist: NICKY Melton Exam Location: [facility] Indications: CARDIAC SYMPTOMS STRESS TEST Please see separate stress test report in [facility] for full findings IMAGE PROTOCOL Rest/Stress 1 Lexiscan Day Radiopharmaceutical Dose (mCi) Administration Site Administered by Rest: Tc-99m 10.9 IV NICKY Watters Sestamibi Stress:Tc-99m 32.9 IV NICKY Watters Sestamibi Rest: 03/30/2020 60 Discovery 630 Stress: 03/30/2020 30 Discovery 630 0.4mg Lexiscan. Images obtained in supine and prone position. SPECT RESULTS Technical Quality: Excellent Raw Data Analysis: Normal Image Corrections: No attenuation or motion correction applied Summed Stress Score: 0 Summed Rest Score: 0 Summed Difference Score: 0 PERFUSION FINDINGS Very small area of decreased tracer uptake in the mid anterior wall region, with no significant reversibility FUNCTIONAL RESULTS (calculated via Gated SPECT) Stress Image LV EF (%): 70 Stress EDV (mL):104 TID: 1.48 Stress ESV (mL):31 FUNCTIONAL FINDINGS: Segmental wall motion analysis revealing no gross wall motion abnormalities IMPRESSIONS 1. Small area of persistent decreases uptake in the mid anterior wall region, suggestive of myocardial scarring versus attenuation artifact. 2. Normal LV ejection fraction 70%. 3. LV wall motion analysis revealing no gross wall motion normalities. 4. Normal LV volume. Elevated transient ischemic dilatation ratio, may suggest endocardial ischemia. However the positive predictive value this finding is limited. Clinical correlation is recommended. Dr Bradley Bowden MD FACC (Electronically Signed) Final Date: 30 March 2020 12:38 S
== END 2020-03-30 18:29 | disposition home or self-care (01) ==
LOC: ER 14:21 → CSU 16:12
PROVIDERS: Family Medicine; Admitting Provider Family Medicine; PCP Family Medicine; Visit Provider Family Medicine
DX: R07.9 Chest pain, unspecified (principal); I10 Essential (primary) hypertension; E78.5 Hyperlipidemia, unspecified; Z79.82 Long term (current) use of aspirin; Z87.891 Personal history of nicotine dependence
CPT/HCPCS: 12345; 36415; 71045; 78452; 80053; 84484; 85025; 93005; 93017; 93306; 94660; 96374; 96375; 99283; 99285; A9500; G0378; J0360; J2785

== ENCOUNTER → 2020-08-18 13:05 | Outpatient (BNVA) | payer MEDICARE, SELFPAY | PROVIDERS: PCP Family Medicine; Visit Provider Specialist | DX: Z47.89 Encounter for other orthopedic aftercare (principal); Z96.611 Presence of right artificial shoulder joint | CPT/HCPCS: 73030 ==

== ENCOUNTER 2020-11-03 06:00 | Outpatient (RCR) | payer MEDICARE, SELFPAY | END 2020-11-18 23:59 | disposition home or self-care (01) | LOC: SPT 06:00 | PROVIDERS: PCP Family Medicine; Referring Provider Family Medicine; Visit Provider Family Medicine | DX: R26.9 Unspecified abnormalities of gait and mobility (principal) | CPT/HCPCS: 97110; 97161 ==

== ENCOUNTER 2021-02-02 13:11 | Outpatient (CLI) | payer MEDICARE, SELFPAY ==
--- NOTE | 2021-02-02 13:23 | MM_ITS ---
WS: [id number] BILATERAL DIGITAL SCREENING MAMMOGRAPHY WITH CAD CLINICAL INFORMATION: SCREENING HISTORY: Screening mammogram. No current complaints. COMPARISON: February 02, 2020 TECHNIQUE: Bilateral CC and MLO views. FINDINGS: Scattered fibroglandular densities bilaterally. No suspicious focal mass, asymmetry, calcifications, or architectural distortion. No evidence of malignancy. Punctate and lucent centered calcifications. MM/[place] [id number] IMPRESSION: BI-RADS: 2-Benign FOLLOW UP: 1 Year Follow-up Recommend return to annual screening mammography.
== END 2021-02-02 13:12 | disposition home or self-care (01) ==
LOC: RADSHAW 13:18
PROVIDERS: PCP Family Medicine; Visit Provider Family Medicine
DX: Z12.31 Encounter for screening mammogram for malignant neoplasm of breast (principal)
CPT/HCPCS: 77067

== ENCOUNTER 2021-02-23 15:07 | Outpatient (CLI) | payer MEDICARE, SELFPAY ==
--- NOTE | 2021-02-23 15:14 | XR_ITS ---
WS: [id number] SCREENING DEXA SCAN [email or web address] CLINICAL INFORMATION: POST MENOPAUSAL COMPARISON: 2015 FINDINGS: The L1-L4 bone mineral density measures 1.378 g/cm2. This corresponds to a T score score of 1.7 and Z score of 2.3. Left forearm bone mineral density measures 0.699. This corresponds to a T score of -2.0 and Z score o f 0.6. XR/XR DEXA axial skeleton* [id number] IMPRESSION: Normal bone mineralization in the lumbar spine. Osteopenia in the left forearm. .
== END 2021-02-23 15:08 | disposition home or self-care (01) ==
PROVIDERS: PCP Family Medicine; Visit Provider Family Medicine
DX: Z78.0 Asymptomatic menopausal state (principal)
CPT/HCPCS: 77080

== ENCOUNTER 2021-05-16 09:33 | Outpatient (RCR) | payer MEDICARE, SELFPAY | END 2021-05-21 23:59 | disposition home or self-care (01) | LOC: SPT 09:33 | PROVIDERS: PCP Family Medicine; Visit Provider Family Medicine | DX: M46.1 Sacroiliitis, not elsewhere classified (principal) | CPT/HCPCS: 97161 ==

== ENCOUNTER 2021-05-22 06:00 | Outpatient (RCR) | payer MEDICARE, SELFPAY | END 2021-06-20 23:59 | disposition home or self-care (01) | LOC: SPT 06:00 | PROVIDERS: PCP Family Medicine; Visit Provider Family Medicine | DX: M54.50 Low back pain, unspecified (principal) | CPT/HCPCS: 97110 ==

== ENCOUNTER 2021-05-23 13:00 | Outpatient (CLI) | payer MEDICARE, SELFPAY ==
--- NOTE | 2021-05-23 13:05 | XR_ITS ---
WS: [id number] LUMBAR SPINE: 3 VIEWS TECHNIQUE: AP, lateral and L5-S1 spot. HISTORY: LOW BACK PAIN COMPARISON: 08/30/2008 Posterior lumbar alignment is normal. There is a very slight RIGHT curvature of the mid lumbar spine. No fractures. Disc spaces are narrowed with endplate osteophytes at all levels. Severe disc space to rowing at L5-S1 with moderate facet joint arthritis at L5-S1. Pedicles are all identified. Mild narrowing of the SI joints. No fusion. Bilateral hip arthroplasties. Mild atherosclerosis aorta. XR/XR lumbar spine 2-3V* [id number] IMPRESSION: 1. Mild progression of degenerative spondylosis throughout the lumbar spine. 2. Most significant degenerative changes at L5-S1 involving the disc and facet joints.
== END 2021-05-23 13:01 | disposition home or self-care (01) ==
PROVIDERS: PCP Family Medicine; Visit Provider Chiropractor
DX: M47.816 Spondylosis without myelopathy or radiculopathy, lumbar region (principal)
CPT/HCPCS: 72100

== ENCOUNTER 2021-06-21 06:00 | Outpatient (RCR) | payer MEDICARE, SELFPAY | END 2021-07-21 23:59 | disposition home or self-care (01) | LOC: SPT 06:00 | PROVIDERS: PCP Family Medicine; Visit Provider Family Medicine | DX: M46.1 Sacroiliitis, not elsewhere classified (principal) | CPT/HCPCS: 97110 ==

== ENCOUNTER 2021-07-22 06:00 | Outpatient (RCR) | payer MEDICARE, SELFPAY | END 2021-08-21 23:59 | disposition home or self-care (01) | LOC: SPT 06:00 | PROVIDERS: PCP Family Medicine; Visit Provider Family Medicine | DX: M54.50 Low back pain, unspecified (principal) | CPT/HCPCS: 97110 ==

== ENCOUNTER → 2021-08-14 13:12 | Outpatient (BNVA) | payer MEDICARE, SELFPAY | PROVIDERS: PCP Family Medicine; Visit Provider Specialist | DX: M19.011 Primary osteoarthritis, right shoulder (principal); Z96.611 Presence of right artificial shoulder joint; Z98.890 Other specified postprocedural states | CPT/HCPCS: 73030 ==

== ENCOUNTER 2021-08-22 06:00 | Outpatient (RCR) | payer MEDICARE, SELFPAY | END 2021-09-18 23:59 | disposition home or self-care (01) | LOC: SPT 06:00 | PROVIDERS: PCP Family Medicine; Visit Provider Family Medicine | DX: M54.50 Low back pain, unspecified (principal) | CPT/HCPCS: 97110 ==

== ENCOUNTER 2021-09-19 06:00 | Outpatient (RCR) | payer MEDICARE, SELFPAY | END 2021-10-19 23:59 | disposition home or self-care (01) | LOC: SPT 06:00 | PROVIDERS: PCP Family Medicine; Visit Provider Family Medicine | DX: M54.50 Low back pain, unspecified (principal) | CPT/HCPCS: 97110 ==

== ENCOUNTER 2021-10-20 06:00 | Outpatient (RCR) | payer MEDICARE, SELFPAY | END 2021-11-18 23:59 | disposition home or self-care (01) | LOC: SPT 06:00 | PROVIDERS: PCP Family Medicine; Visit Provider Family Medicine | DX: M46.1 Sacroiliitis, not elsewhere classified (principal); G89.29 Other chronic pain | CPT/HCPCS: 97110 ==

== ENCOUNTER 2021-11-19 06:00 | Outpatient (RCR) | payer MEDICARE, SELFPAY | END 2021-11-23 23:59 | disposition home or self-care (01) | LOC: SPT 06:00 | PROVIDERS: PCP Family Medicine; Visit Provider Family Medicine | DX: M46.1 Sacroiliitis, not elsewhere classified (principal) | CPT/HCPCS: 97110 ==

== ENCOUNTER → 2022-01-26 12:43 | Outpatient (BNVA) | payer MEDICARE, SELFPAY | PROVIDERS: PCP Family Medicine; Visit Provider Family Medicine | DX: Z51.81 Encounter for therapeutic drug level monitoring (principal); E03.9 Hypothyroidism, unspecified; E78.5 Hyperlipidemia, unspecified; I10 Essential (primary) hypertension | CPT/HCPCS: 80053; 80061; 84443; 85025 ==

== ENCOUNTER 2022-02-16 10:12 | Outpatient (CLI) | payer MEDICARE, SELFPAY ==
--- NOTE | 2022-02-16 10:30 | MM_ITS ---
WS: [id number] BILATERAL SCREENING DIGITAL BREAST TOMOSYNTHESIS MAMMOGRAM WITH CAD HISTORY: SCREENING COMPARISON: 02/02/2021 and 02/17/2020 Bilateral CC and MLO views with tomosynthesis and synthetic mammography submitted. Computer aided det ection analyzed. Breast composition: There are scattered areas of fibroglandular density. No suspicious masses, microc alcifications or architectural distortion. Stable appearance of each breast and the scattered calcifi cation. MM/[place] [id number] IMPRESSION: BI-RADS: 2-Benign FOLLOW UP: 1 Year Follow-up
== END 2022-02-16 10:13 | disposition home or self-care (01) ==
LOC: RAD 10:18
PROVIDERS: PCP Family Medicine; Visit Provider Family Medicine
DX: Z12.31 Encounter for screening mammogram for malignant neoplasm of breast (principal)
CPT/HCPCS: 77063; 77067

== ENCOUNTER → 2022-04-18 11:52 | Outpatient (BNVA) | payer MEDICARE, SELFPAY | PROVIDERS: PCP Family Medicine; Visit Provider Family Medicine | DX: D22.9 Melanocytic nevi, unspecified (principal) | CPT/HCPCS: 88304 ==

== ENCOUNTER → 2022-08-08 11:14 | Outpatient (BNVA) | payer OTHER, SELFPAY | PROVIDERS: PCP Family Medicine; Visit Provider Specialist | DX: M19.041 Primary osteoarthritis, right hand (principal); M19.042 Primary osteoarthritis, left hand; M18.0 Bilateral primary osteoarthritis of first carpometacarpal joints | CPT/HCPCS: 73130 ==

== ENCOUNTER 2022-08-08 14:31 | Outpatient (CLI) | payer OTHER, SELFPAY | END 2022-08-08 14:32 | disposition home or self-care (01) | LOC: SPT 14:32 | PROVIDERS: PCP Family Medicine; Visit Provider Specialist | DX: Z46.89 Encounter for fitting and adjustment of other specified devices (principal); M18.9 Osteoarthritis of first carpometacarpal joint, unspecified | CPT/HCPCS: 97760; L3924 ==

== ENCOUNTER → 2022-12-07 11:49 | Outpatient (BNVA) | payer OTHER, SELFPAY | PROVIDERS: PCP Family Medicine; Visit Provider Family Medicine | DX: Z00.00 Encounter for general adult medical examination without abnormal findings (principal); I10 Essential (primary) hypertension; E78.5 Hyperlipidemia, unspecified | CPT/HCPCS: 80053; 80061; 84443; 85025 ==

== ENCOUNTER 2023-02-20 12:34 | Outpatient (CLI) | payer OTHER, SELFPAY ==
--- NOTE | 2023-02-20 13:18 | MM_ITS ---
WS: [id number] BILATERAL 3D TOMOSYNTHESIS DIGITAL SCREENING MAMMOGRAPHY WITH CAD CLINICAL INFORMATION: SCREENING HISTORY: Screening mammogram. No current complaints. COMPARISON: 2021 TECHNIQUE: Bilateral CC and MLO views. FINDINGS: Scattered fibroglandular densities bilaterally. No suspicious focal mass, asymmetry, calcifications, or architectural distortion. No evidence of malignancy. Punctate and lucent centered calcifications. MM/[place] [id number] IMPRESSION: BI-RADS: 2-Benign FOLLOW UP: 1 Year Follow-up Recommend return to annual screening mammography.
== END 2023-02-20 12:35 | disposition home or self-care (01) ==
PROVIDERS: PCP Family Medicine; Visit Provider Family Medicine
DX: Z12.31 Encounter for screening mammogram for malignant neoplasm of breast (principal)
CPT/HCPCS: 77063; 77067

== ENCOUNTER 2023-02-25 12:58 | Outpatient (CLI) | payer OTHER, SELFPAY ==
--- NOTE | 2023-02-25 13:00 | XR_ITS ---
WS: [id number] SCREENING DEXA SCAN [facility] CLINICAL INFORMATION: screening COMPARISON: February 23, 2021 FINDINGS: The L1-L4 bone mineral density measures 1.438 g/cm2. This corresponds to a T score score of 2.1 and Z score of 2.9. Left forearm bone mineral density measures 0.73. This corresponds to a T score of -1.7 and Z score of 1.0. XR/XR DEXA axial skeleton* [id number] IMPRESSION: Normal bone mineralization lumbar spine. Osteopenia LEFT forearm
== END 2023-02-25 12:59 | disposition home or self-care (01) ==
LOC: RAD 13:05
PROVIDERS: PCP Family Medicine; Visit Provider Family Medicine
DX: Z13.820 Encounter for screening for osteoporosis (principal); Z00.00 Encounter for general adult medical examination without abnormal findings; M85.832 Other specified disorders of bone density and structure, left forearm
CPT/HCPCS: 77080

== ENCOUNTER → 2023-02-27 11:13 | Outpatient (BNVA) | payer OTHER, SELFPAY | PROVIDERS: PCP Family Medicine; Visit Provider Specialist | DX: M18.11 Unilateral primary osteoarthritis of first carpometacarpal joint, right hand | CPT/HCPCS: 73110 ==

== ENCOUNTER 2023-05-01 13:43 | Outpatient (RCR) | payer OTHER, SELFPAY | END 2023-05-21 23:59 | disposition home or self-care (01) | LOC: SPT 13:43 | PROVIDERS: PCP Family Medicine; Visit Provider Family Medicine | DX: R29.6 Repeated falls (principal) | CPT/HCPCS: 97110; 97161 ==

== ENCOUNTER 2023-05-22 06:00 | Outpatient (RCR) | payer MEDICARE, OTHER, SELFPAY | END 2023-06-20 23:59 | disposition home or self-care (01) | LOC: SPT 06:00 | PROVIDERS: PCP Family Medicine; Visit Provider Family Medicine | DX: R29.6 Repeated falls (principal) | CPT/HCPCS: 97110 ==

== ENCOUNTER → 2023-05-31 11:18 | Outpatient (BNVA) | payer OTHER, SELFPAY | PROVIDERS: PCP Family Medicine; Visit Provider Family Medicine | DX: E78.5 Hyperlipidemia, unspecified (principal); I10 Essential (primary) hypertension | CPT/HCPCS: 80053; 80061; 84443 ==

== ENCOUNTER 2023-06-26 09:51 | Outpatient (CLI) | payer OTHER, SELFPAY ==
--- NOTE | 2023-06-26 10:14 | XR_ITS ---
WS: [id number] Orbits, 4 views, 06/26/2023 Clinical Data: right orbital injury from fall Comparison: None. Findings: The orbits are intact without any erosions. No radiopaque foreign bodies are overlying the orbits. Th e adjacent sinuses are clear and there are no air-fluid levels. No evidence of any facial fracture is seen. Impression: Negative orbits.
== END 2023-06-26 09:52 | disposition home or self-care (01) ==
PROVIDERS: PCP Family Medicine; Visit Provider Family Medicine
DX: H57.11 Ocular pain, right eye (principal); S05.91XA Unspecified injury of right eye and orbit, initial encounter; W19.XXXA Unspecified fall, initial encounter
CPT/HCPCS: 70200

== ENCOUNTER → 2023-07-01 13:33 | Outpatient (BNVA) | payer OTHER, SELFPAY | PROVIDERS: PCP Family Medicine; Visit Provider Specialist | DX: M18.11 Unilateral primary osteoarthritis of first carpometacarpal joint, right hand; Z96.653 Presence of artificial knee joint, bilateral; M25.539 Pain in unspecified wrist; M25.569 Pain in unspecified knee | CPT/HCPCS: 73100; 73560; 73565 ==

== ENCOUNTER → 2023-08-19 17:05 | Outpatient (BNVA) | payer OTHER, SELFPAY | PROVIDERS: PCP Family Medicine; Visit Provider Family Medicine | DX: J06.9 Acute upper respiratory infection, unspecified (principal) | CPT/HCPCS: 87071; 87400; 87880 ==

== ENCOUNTER 2023-10-03 10:46 | Emergency (ER) | payer OTHER, SELFPAY ==
[2023-10-03 11:00] VITALS: BP 182/70; PULSE 53; RESP 18; TEMP 36.4; O2SAT 98; BMI 32.8
--- NOTE | 2023-10-03 11:08 | CT_ITS ---
WS: [id number] CT HEAD NONCONTRAST HISTORY: fall TECHNIQUE: Contiguous axial imaging performed through the brain in 2.5 mm imaging. Bone and soft tiss ue windows. Sagittal and coronal reformats reviewed. All CT scans at [facility] use at least one of these dose optimization techniques: automated exposure control; mA and/or kV adjustment per pa tient size (includes targeted exams where dose is matched to clinical indication); or iterative recon struction. DLP: 1750.29 mGy.cm COMPARISON: 11/01/2013 No acute intracranial hemorrhage, midline shift or mass effect. Mild bilateral symmetric atrophy and mild small vessel ischemic disease. Tiny acute lacunar infarct a nterior limb RIGHT internal capsule. No large territory infarct. Ventricles: Normal size with no hydrocephalus. Paranasal sinuses: Near complete opacification LEFT sphenoid sinus. Otherwise sinuses are clear. Mastoid air cells: Well pneumatized. Calvarium and scalp: No skull fracture. There is a large soft tissue hematoma and contusion centered over the LEFT orbit and globe and frontal bone. There is gravel-like debris within the soft tissue la ceration. Hematoma extends over the anterior portion of the orbit. IMPRESSION: 1. No acute intracranial hemorrhage or edema. 2. Mild symmetric cerebral atrophy and small vessel disease. 3. Large soft tissue hematoma and laceration with debris centered over the LEFT orbit and frontal [place] ne. No fracture.
--- NOTE | 2023-10-03 11:08 | W.ED.WOUNDLC ---
HPI - Wound/Laceration General: Chief Complaint: Wound/Laceration Stated Complaint: fall, head lac Time Seen by Provider: 10/03/23 11:03 Source: patient Mode of arrival: ambulatory Limitations: no limitations History of Present Illness: 83-year-old female states that she had been walking around her car and bumped it and fell. She states she had hit her head on gravel does have a laceration forehead swelling around her eye planes of a headache she rates a 3 out of 10 denies any other injuries from the fall. Associated symptoms: Denies chills, fever(s), nausea or vomiting Review of Systems Const: Denies: fever(s) or chills Eyes: Denies: blurry vision or eye discomfort ENMT: Denies: throat pain or dental pain Card: Denies: chest pain Resp: Denies: dyspnea GI: Denies: abdominal pain, nausea, vomiting or diarrhea Musc: Denies: neck pain or back pain Skin/Breast: Denies: rash Neuro: Reports: headache(s) PFSH ED PFSH: Medical History Osteoarthritis Insomnia History of open sigmoidectomy Hyperlipidemia Hypertension De Quervain's tenosynovitis, right Trigger finger, right middle finger Ventral incisional hernia Venous insufficiency Diverticulitis Primary osteoarthritis of right shoulder Surgical History 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 History of knee surgery Bilateral History of colonoscopy History of elbow surgery Status post reverse total arthroplasty of right shoulder Social History Smoking and tobacco/nicotine status: former use of tobacco/nicotine Alcohol intake: never Substance/Drug Use: never Physical Exam Const: COMMON NORMALS: no acute distress, patient oriented x3 and healthy appearing HENMT: COMMON NORMALS: normocephalic HEAD & SCALP: normocephalic OTHER: 1cm laceration to left forehead swelling and abrasion aroud left eye Eye: COMMON NORMALS: Equal, round and reactive pupils present and EOMs intact bilaterally PUPIL: Yes Equal, round and reactive pupils present Neck/C-Spine: COMMON NORMALS: full ROM and supple CERVICAL SPINE: Yes cervical ROM normal and No Cervical spine tenderness Chest: COMMONS NORMALS: normal inspection of the chest and normal palpation of entire chest wall Resp: COMMON NORMALS: normal respiratory effort, No retractions, No use of accessory muscles and clear to auscultation bilaterally AUSCULTATION: clear to auscultation bilaterally Cardio: COMMON NORMALS: regular rate, regular rhythm and No murmurs present (Cardio) RATE: regular rate RHYTHM: regular rhythm GI: COMMON NORMALS: Normal to inspection, nondistended, normoactive bowel sounds present, Soft to palpation, non-tender and no masses PALPATION: Yes Soft to palpation Extremity: COMMON NORMALS: normal to inspection and full ROM Neuro: COMMON NORMALS: patient oriented x3, moves all extremities and no focal motor deficits Psych: COMMON NORMALS: mental status grossly normal, Normal thought process present and cooperative THOUGHT PROCESS: Normal thought process present Skin: COMMON NORMALS: no rashes or lesions noted and no wounds GENERAL SKIN EXAM: no rashes or lesions noted Procedures Laceration Laceration 1: Site: face Side (If applicable): left Size (cm): 1 Description: linear Depth: simple, single layer Pre-repair: wound explored and irrigated extensively Skin layer closed with: other (dermabond) Course Vital Signs: Vital signs: Vital Signs Temperature 97.6 F 10/03/23 11:00 Pulse Rate 53 L 10/03/23 11:00 Respiratory Rate 18 10/03/23 11:00 Blood Pressure 182/70 10/03/23 11:16 Pulse Oximetry 97 10/03/23 11:16 Oxygen Delivery Me thod Room Air 10/03/23 11:00 MDM - Wound/Laceration Medical Decision Making Patient presents here with head laceration from a fall imaging shows no acute fractures. She does have a subconjunctival hemorrhage to the left eye as well she has good vision out of no signs of entrapment she is to follow-up with her critical care registered nurse Dr. Ch did repair her laceration with Dermabond she is to return if worsening she understands agrees to plan Medical Records I reviewed the patient's medical records. All radiology interpretation(s) finalized by discharge Discharge Plan Discharge Patient Disposition: Home Clinical Impression: Fall, Laceration of head, Subconjunctival hemorrhage of left eye Condition: Stable Prescriptions: No Action aspirin [Adult Low Dose Aspirin] 81 mg tablet,delayed release (DR/EC) 81 mg PO QAM magnesium citrate 100 mg tablet 400 mg PO BEDTIME omega-3 fatty acids 1,000 mg capsule 1,000 mg PO BID zolpidem [Ambien] 10 mg tablet 10 mg PO BEDTIME Qty: 90 1RF (DME) [facility] JOINT BRACE See Rx Instructions .Route .MEDSUPPLY Qty: 2 0RF Rx Instructions: As directed cyclobenzaprine 10 mg tablet 10 mg PO TID PRN (Reason: muscle spasm) Qty: 30 5RF (DME) Right foot prosthetic See Rx Instructions .Route .MEDSUPPLY Qty: 1 0RF Rx Instructions: evaluation for right foot prostethic for short limb. (DME) C-pap supplies See Rx Instructions .Route .MEDSUPPLY Qty: 1 0RF Rx Instructions: As directed atenolol 50 mg tablet See Rx Instructions .ROUTE .COMPLEX Qty: 270 3RF Dose Instruction: TAKE TWO TABLETS BY MOUTH EVERY MORNING AND ONE TAB EVERY EVENING Rx Instructions: TAKE TWO TABLETS (100mg)BY MOUTH EVERY MORNING AND ONE TAB (50mg) EVERY EVENING multivitamin [Multiple Vitamins] Tablet 1 tab PO QPM amoxicillin 500 mg capsule See Rx Instructions .ROUTE .COMPLEX Rx Instructions: take 500mg (1 cap) po tid start the day before surgery and take 4 caps (2000mg) one hour before surgery CoQ-10 100 mg Capsule 100 mg PO QAM Fiber (psyllium husk) 0.4 gram Capsule 0.8 g PO DAILY Probiotic Blend 2 billion cell-50 mg Capsule 1 cap PO QAM furosemide 40 mg tablet 40 mg PO DAILY PRN (Reason: Edema) levothyroxine 100 mcg tablet 100 mcg PO QAM losartan 100 mg tablet 100 mg PO BEDTIME escitalopram oxalate 10 mg tablet 10 mg PO QAM Discharge Orders: Discharge ED (Routine); Ordered 10/03/23 Ordered By: Jodie Gann Referrals: Yinka Ch MD [Physician] - 4-7 days Nader Sommer MD [Primary Care Provider] - Discharge Diet: Advance as tolerated Discharge Activity: Resume usual activity Patient Instructions: Subconjunctival Hemorrhage, Head Injury (ED), Skin Adhesive Care (ED) Coding Level of Care Code ED 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
[2023-10-03 11:16] VITALS: BP 182/70; O2SAT 97
--- NOTE | 2023-10-03 11:38 | CT_ITS ---
WS: [id number] CT FACIAL BONES HISTORY: FALL TECHNIQUE: Images obtained from the supraorbital location through the mandible. Soft tissue and bone windows are reviewed. Coronal and sagittal reformats have also been submitted. DLP: 1750.[address] scans at [facility] use at least one of these dose optimization techniques: automated e xposure control; mA and/or kV adjustment per patient size (includes targeted exams where dose is matc hed to clinical indication); or iterative reconstruction. COMPARISON: None available. There is a large soft tissue, acute hematoma centered over the LEFT facial bones. Hematoma centered o elizabeth the LEFT zygomatic arch, orbit and frontal bone. Gravel-like debris is present within the lacerat ion. This large hematoma extends over a length of at least 6.2 cm. No fracture is identified. Nasal bones and zygomatic arches and the sinuses are intact. Mandibular co ndyles are intact. Upper cervical spine is negative for fracture. Normal craniocervical junction. IMPRESSION: 1. No facial bone fracture. 2. Large soft tissue hematoma with laceration and gravel-like debris centered over the LEFT orbit, z ygomatic arch and frontal bone.
[2023-10-03 12:53] VITALS: BP 158/68; PULSE 52; O2SAT 94
== END 2023-10-03 12:55 | disposition home or self-care (01) ==
PROVIDERS: Emergency Provider Emergency Medicine; PCP Family Medicine
DX: S01.81XA Laceration without foreign body of other part of head, initial encounter (principal); S00.212A Abrasion of left eyelid and periocular area, initial encounter; H11.32 Conjunctival hemorrhage, left eye; Z79.82 Long term (current) use of aspirin; Z87.891 Personal history of nicotine dependence; E78.5 Hyperlipidemia, unspecified; I10 Essential (primary) hypertension; W18.39XA Other fall on same level, initial encounter
CPT/HCPCS: 12011; 70450; 70486; 99284

== ENCOUNTER → 2023-10-18 10:59 | Outpatient (BNVA) | payer OTHER, SELFPAY | PROVIDERS: PCP Family Medicine; Visit Provider Specialist | DX: M18.11 Unilateral primary osteoarthritis of first carpometacarpal joint, right hand (principal) | CPT/HCPCS: 20600; J1100; J2795; J3301 ==

== ENCOUNTER → 2023-11-05 13:12 | Outpatient (BNVA) | payer OTHER, SELFPAY | PROVIDERS: PCP Family Medicine; Visit Provider Family Medicine | DX: N18.9 Chronic kidney disease, unspecified (principal); M21.70 Unequal limb length (acquired), unspecified site; R29.6 Repeated falls; R07.9 Chest pain, unspecified; E78.5 Hyperlipidemia, unspecified | CPT/HCPCS: 80053; 85025 ==

== ENCOUNTER → 2023-11-11 12:06 | Outpatient (BNVA) | payer OTHER, SELFPAY | PROVIDERS: PCP Family Medicine; Visit Provider Specialist | DX: M18.12 Unilateral primary osteoarthritis of first carpometacarpal joint, left hand | CPT/HCPCS: 73130; 99213 ==

== ENCOUNTER 2023-11-15 15:33 | Outpatient (CLI) | payer OTHER, SELFPAY ==
--- NOTE | 2023-11-15 15:45 | CTR_ITS ---
PROCEDURE INFORMATION: Exam: CT Maxillofacial Without Contrast Exam date and time: 11/15/2023 3:40 PM Age: 83 years old Clinical indication: Injury or trauma and condition or disease; Other: L orbit superior/lateral, draining wound; Blunt trauma (contusions or hematomas); Orbit/periorbital; Bilateral; Injury details: Fall 6 weeks ago would L orbit superior/lateral, draining; Additional info: Non-healing laceration after facial trauma TECHNIQUE: Imaging protocol: Computed tomography of the face without contrast. Radiation optimization: All CT scans at this facility use at least one of these dose optimization techniques: automated exposure control; mA and/or kV adjustment per patient size (includes targeted exams where dose is matched to clinical indication); or iterative reconstruction. COMPARISON: CT facial bones wo con* [id number] 10/03/2023 11:40 AM RADIATION DOSE METRICS: Total DLP (mGy-cm): 87.18 FINDINGS: Orbital cavities: Bony orbits are intact. The globes, intraconal/extraconal fat, extraocular muscles and optic nerves are grossly unremarkable. Bones/joints: No evidence of facial fracture. Paranasal sinuses: There is near-complete opacification of the left sphenoid sinus containing relatively dense material. Paranasal sinuses are otherwise well-aerated. Soft tissues: Left periorbital laceration with suture material in place. No fluid collection or hematoma. Other: There is mild asymmetric prominence of the CSF space on the right raising the question of a small chronic subdural hygroma/hematoma, not significantly changed. CT/CT facial bones wo con* [id number] IMPRESSION: 1. Left periorbital laceration without evidence of fluid collection or underlying fracture. 2. Mild asymmetric prominence of the right frontal lateral convexity CSF space raising the question of a small chronic subdural hygroma/hematoma, not significantly changed. 3. Near-complete opacification of the left sphenoid sinus containing relatively dense material raising the question of fungal sinusitis. Consider follow-up outpatient ENT evaluation.
== END 2023-11-15 15:34 | disposition home or self-care (01) ==
LOC: RAD 15:33
PROVIDERS: PCP Family Medicine; Visit Provider Family Medicine
DX: S01.91XA Laceration without foreign body of unspecified part of head, initial encounter (principal); W19.XXXA Unspecified fall, initial encounter; H11.32 Conjunctival hemorrhage, left eye; S01.112A Laceration without foreign body of left eyelid and periocular area, initial encounter
CPT/HCPCS: 70486

== ENCOUNTER → 2024-01-16 15:34 | Outpatient (BNVA) | payer OTHER, SELFPAY | PROVIDERS: PCP Family Medicine; Visit Provider Family Medicine | DX: J32.3 Chronic sphenoidal sinusitis (principal) | CPT/HCPCS: 93005 ==

== ENCOUNTER → 2024-02-07 10:37 | Outpatient (BNVA) | payer OTHER, SELFPAY | PROVIDERS: PCP Family Medicine; Visit Provider Specialist | DX: M18.11 Unilateral primary osteoarthritis of first carpometacarpal joint, right hand (principal); Z71.89 Other specified counseling | CPT/HCPCS: 20600; J1100; J2795; J3301 ==

== ENCOUNTER 2024-03-11 12:46 | Outpatient (CLI) | payer OTHER, SELFPAY ==
--- NOTE | 2024-03-11 13:00 | MM_ITS ---
WS: [id number] Bilateral screening 3D tomosynthesis digital mammogram, 03/11/2024 Clinical Data: SCREENING Comparison: 02/20/2023, 02/16/2022, 02/02/2021, 02/17/2020, 02/02/2020, 11/25/2018, 11/21/2017, 11/19/2016, 2015, 11/15/2014, 11/05/2013, 11/04/2012, 09/12/2011, 09/11/2010, 09/01/2009, 08/31/2008, 08/27/2007, 07/23/2006 . Findings: The breast parenchymal pattern shows fibroglandular tissue. There are mole markers on the left breast . There are lymph nodes in both axilla. No spiculated masses or clustered calcifications are seen. Th ere are no secondary signs of carcinoma. MM/[place] [id number] Impression: 1. Negative bilateral mammogram unchanged. 2. Recommend annual screening mammograms. BIRADS: 1-Negative FOLLOW UP: 1 Year Follow-up The CAD cafeteria or lunchroom checker was used.
== END 2024-03-11 12:47 | disposition home or self-care (01) ==
LOC: RAD 12:47
PROVIDERS: PCP Family Medicine; Visit Provider Family Medicine
DX: Z12.31 Encounter for screening mammogram for malignant neoplasm of breast (principal)
CPT/HCPCS: 77063; 77067

== ENCOUNTER 2024-03-17 13:30 | Outpatient (CLI) | payer OTHER, SELFPAY ==
--- NOTE | 2024-03-17 13:30 | CT_ITS ---
WS: [id number] CT FACIAL BONES HISTORY: fu on sphenoid sinus TECHNIQUE: Images obtained from the supraorbital location through the mandible. Soft tissue and bone windows are reviewed. Coronal and sagittal reformats have also been submitted. DLP: 623.[address] scans at [facility] use at least one of these dose optimization techniques: automated e xposure control; mA and/or kV adjustment per patient size (includes targeted exams where dose is matc hed to clinical indication); or iterative reconstruction. COMPARISON: 11/15/2023 Reidentified is the dense, near complete opacification of the LEFT sphenoid sinus with slight increas ed attenuation in the secretions. There is no expansion of the bone or sclerosis. Very similar to the prior study. There is mild extension into the posterior LEFT ethmoid air cells. The remaining sinus cavities are well opacified. There are no air-fluid levels. Orbits and globes are negative. Normal nasal bones and zygomatic arches. Degenerative disc disease an d facet arthropathy in the upper cervical spine. CT/CT facial bones wo con* [id number] IMPRESSION: 1. No significant change in the dense opacification in the LEFT sphenoid sinus extending into the posterior ethmoid air cells. This is most likely inspissate d secretions from chronic sinus disease. There is no bony expansion. Fungal sin usitis is within the differential as previously described but less likely. 2. No air-fluid levels.
== END 2024-03-17 13:31 | disposition home or self-care (01) ==
PROVIDERS: PCP Family Medicine; Visit Provider Family Medicine
DX: J32.3 Chronic sphenoidal sinusitis (principal); M50.30 Other cervical disc degeneration, unspecified cervical region; M47.892 Other spondylosis, cervical region
CPT/HCPCS: 70486

== ENCOUNTER → 2024-05-13 13:34 | Outpatient (BNVA) | payer OTHER, SELFPAY | PROVIDERS: PCP Family Medicine; Visit Provider Specialist | DX: M18.11 Unilateral primary osteoarthritis of first carpometacarpal joint, right hand (principal) | CPT/HCPCS: 20600; J1100; J2795; J3301 ==

== ENCOUNTER → 2024-05-29 11:46 | Outpatient (BNVA) | payer OTHER, SELFPAY | PROVIDERS: PCP Family Medicine; Visit Provider Family Medicine | DX: Z13.29 Encounter for screening for other suspected endocrine disorder (principal); I10 Essential (primary) hypertension; E78.5 Hyperlipidemia, unspecified | CPT/HCPCS: 80053; 80061; 84443; 85025 ==

== ENCOUNTER → 2024-08-14 11:15 | Outpatient (BNVA) | payer MEDICARE, SELFPAY | PROVIDERS: PCP Family Medicine; Visit Provider Specialist | DX: M18.11 Unilateral primary osteoarthritis of first carpometacarpal joint, right hand (principal); Z71.89 Other specified counseling | CPT/HCPCS: 20600 ==

== ENCOUNTER → 2024-08-31 13:27 | Outpatient (BNVA) | payer MEDICARE, SELFPAY | PROVIDERS: PCP Family Medicine; Visit Provider Specialist | DX: M25.532 Pain in left wrist (principal) | CPT/HCPCS: 73110; 99214 ==

== ENCOUNTER 2024-09-19 06:00 | Outpatient (RCR) | payer MEDICARE, SELFPAY | END 2024-10-19 23:59 | disposition home or self-care (01) | LOC: SPT 06:00 | PROVIDERS: Visit Provider Family Medicine | DX: M54.9 Dorsalgia, unspecified (principal); G89.29 Other chronic pain | CPT/HCPCS: 97110; 97161 ==

== ENCOUNTER 2024-09-24 11:08 | Outpatient (CLI) | payer MEDICARE, SELFPAY ==
--- NOTE | 2024-09-24 11:00 | MRR_ITS ---
PROCEDURE INFORMATION: Exam: MR Left Upper Extremity Joint Without Contrast; Wrist Exam date and time: 09/24/2024 11:24 AM Age: 84 years old Clinical indication: Left wrist pain. TECHNIQUE: Imaging protocol: Magnetic resonance imaging of the left upper extremity without contrast. Exam focused on the wrist. COMPARISON: CR XR wrist LT min 3V* [id number] 08/31/2024 1:29 PM FINDINGS: Bones/joints: The capitolunate angle is 46 degrees with dorsal tilt of the lunate. This suggests dorsal intercalated segment instability. Mild to moderate degenerative changes at the radiocarpal joint. Small radiocarpal and distal radioulnar joint effusions. No acute fractures seen. Scapholunate ligament: There is rupture of the scapholunate ligament. Lunotriquetral ligament: The lunotriquetral ligament is intact. Triangular fibrocartilage complex: Probable perforation or partial tearing of the triangular fibrocartilage complex. Flexor compartment tendons: The flexor tendons in the carpal tunnel are grossly intact. The flexor retinaculum is intact. Extensor compartment tendons: Mild tendinosis of the extensor carpi ulnaris tendon. Nerves: The median nerve is not well seen. Soft tissues: No significant soft tissue swelling. MR/MR wrist LT wo con* [id number] IMPRESSION: 1. Rupture of the scapholunate ligament. 2. Findings suggesting dorsal intercalated segment instability. 3. Probable perforation or partial tearing of the triangular fibrocartilage complex. 4. Mild to moderate degenerative changes at the radiocarpal joint. 5. Small radiocarpal and distal radioulnar joint effusions. 6. Mild tendinosis of the extensor carpi ulnaris tendon.
== END 2024-09-24 11:09 | disposition home or self-care (01) ==
LOC: RAD 11:11
PROVIDERS: PCP Family Medicine; Visit Provider Specialist
DX: M19.032 Primary osteoarthritis, left wrist (principal); S63.392A Traumatic rupture of other ligament of left wrist, initial encounter; X58.XXXA Exposure to other specified factors, initial encounter; R93.6 Abnormal findings on diagnostic imaging of limbs; M77.8 Other enthesopathies, not elsewhere classified
CPT/HCPCS: 73221

== ENCOUNTER 2024-10-20 05:41 | Outpatient (RCR) | payer MEDICARE, SELFPAY | END 2024-11-18 23:59 | disposition home or self-care (01) | LOC: SPT 05:41 | PROVIDERS: Visit Provider Family Medicine | DX: M54.9 Dorsalgia, unspecified (principal); G89.29 Other chronic pain | CPT/HCPCS: 97110 ==

== ENCOUNTER → 2024-11-06 10:35 | Outpatient (BNVA) | payer MEDICARE, SELFPAY | PROVIDERS: PCP Family Medicine; Visit Provider Specialist | DX: M18.11 Unilateral primary osteoarthritis of first carpometacarpal joint, right hand (principal) | CPT/HCPCS: 20600; J1100; J2795; J3301; J9999 ==

== ENCOUNTER → 2024-11-16 15:02 | Outpatient (BNVA) | payer MEDICARE, SELFPAY | PROVIDERS: PCP Family Medicine; Visit Provider Family Medicine | DX: I10 Essential (primary) hypertension (principal); E78.5 Hyperlipidemia, unspecified; G47.33 Obstructive sleep apnea (adult) (pediatric); R30.0 Dysuria | CPT/HCPCS: 81000; 87086 ==

== ENCOUNTER 2024-11-19 06:30 | Outpatient (RCR) | payer MEDICARE, SELFPAY | END 2024-11-27 08:52 | disposition home or self-care (01) | LOC: SPT 06:30 | PROVIDERS: PCP Family Medicine; Visit Provider Family Medicine | DX: M54.9 Dorsalgia, unspecified (principal); G89.29 Other chronic pain | CPT/HCPCS: 97110 ==

== ENCOUNTER → 2024-12-01 09:55 | Outpatient (BNVA) | payer MEDICARE, SELFPAY | PROVIDERS: PCP Family Medicine; Visit Provider Family Medicine | DX: I10 Essential (primary) hypertension (principal); E78.5 Hyperlipidemia, unspecified; G47.33 Obstructive sleep apnea (adult) (pediatric) | CPT/HCPCS: 80053; 80061; 84443; 85025 ==

== ENCOUNTER 2025-02-18 12:35 | Outpatient (CLI) | payer MEDICARE, SELFPAY ==
--- NOTE | 2025-02-18 13:00 | US_ITS ---
WS: [id number] THYROID ULTRASOUND HISTORY: goiter COMPARISON: 08/19/2019 Right lobe: 1.7 cm x 1.4 cm x 4.9 cm (w x ap x l). Volume: 5.4 cm3. Mildly enlarged thyroid. Very heterogeneous appearance of the gland with several cystic nodules. No solid nodule or echogenic foci. No increased vascularity. Left lobe: 1.9 cm x 1.7 cm x 4.7 cm (w x ap x l). Volume: 7.4 cm3. Mildly enlarged gland with multiple cysts throughout the gland. No solid nodule or echogenic foci. Isthmus: 0.2 cm. US/US thyroid [id number] IMPRESSION: TI-RADS 2; no suspicious nodules. No FNA recommended. Multiple cystic nodules. 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 No solid mass identi fied today.
== END 2025-02-18 12:36 | disposition home or self-care (01) ==
LOC: RAD 12:36
PROVIDERS: PCP Family Medicine; Visit Provider Family Medicine
DX: E04.2 Nontoxic multinodular goiter (principal)
CPT/HCPCS: 76536

== ENCOUNTER 2025-03-05 06:44 | Outpatient (CLI) | payer MEDICARE, SELFPAY ==
--- NOTE | 2025-03-05 06:45 | CT_ITS ---
WS: [id number] CT FACIAL BONES HISTORY: f/u on chronic sinusitis TECHNIQUE: Images obtained from the supraorbital location through the mandible. Soft tissue and bone windows are reviewed. Coronal and sagittal reformats have also been submitted. DLP: 629.[address] scans at [facility] use at least one of these dose optimization techniques: automated exposure control; mA and/or kV adjustment per patient size (includes targeted exams where dose is matched to clinical indication); or iterative reconstruction. COMPARISON: 10/03/2023, 03/17/2024 Progression of inspissated opacification within the sphenoid sinuses. There is now inspissated material extending into the RIGHT sphenoid. No bony expansion. There is variable density within the inspissated material. Frontal and maxillary sinuses are normal. There is very slight expansion of the LEFT sphenoid sinus disease into the posterior ethmoid air cells. No destructive bone lesions. Bilateral frontal lobe volume loss, RIGHT greater than LEFT is stable. Orbits and globes are negative. Increased calcification in the distal carotid arteries. CT/CT facial bones wo con* [id number] IMPRESSION: 1. Interval progression of inspissated secretions in the sphenoid sinuses sinc e 03/17/2024. There is no bony expansion or sclerosis or erosion. This is most l ikely due to chronic sinusitis. 2. No air-fluid levels in the sinuses.
== END 2025-03-05 06:45 | disposition home or self-care (01) ==
LOC: RAD 06:44
PROVIDERS: PCP Family Medicine; Visit Provider Family Medicine
DX: J32.3 Chronic sphenoidal sinusitis (principal); G93.89 Other specified disorders of brain; I65.23 Occlusion and stenosis of bilateral carotid arteries
CPT/HCPCS: 70486

== ENCOUNTER → 2025-03-10 15:20 | Outpatient (BNVA) | payer MEDICARE, SELFPAY | PROVIDERS: PCP Family Medicine; Visit Provider Specialist | DX: M19.031 Primary osteoarthritis, right wrist (principal); M19.032 Primary osteoarthritis, left wrist | CPT/HCPCS: 20610; 73110; 99214; J1100; J2795; J3301; J9999 ==

== ENCOUNTER 2025-03-15 09:46 | Emergency (ER) | payer MEDICARE, SELFPAY ==
--- OUTSIDE RECORDS SUMMARY | 2025-03-12 11:03 | XMS_ITS | Encounter Summary ---
Author Organization [facility] Address [address] [place] [id number] Care Team Providers Care Cover Operator Name Role Phone Nader Sommer MD Primary Care Provider Reason for Referral * Radiology Services (Routine) - Closed Specialty Diagnoses / Procedures Referred By Hipolito monterroso Referred To Contact Radiology Diagnoses Screening mammogram, encounter for Procedures MAMMO 3D KENA SCREEN BILAT W OR WO CAD MAMMO 3D KENA SCREEN BILAT W OR WO CAD CHG SCREENING MAMMOGRAPHY BI 2-VIEW BREAST INC CAD CHG SCREENING DIGITAL BREAST TOMOSYNTHESIS BI Nader Sommer MD [address] [place] [address] Phone: tel: fax: [facility] [address] [address] Phone: tel: fax: Referral ID Status Reason Start Date Expiration Date Visits Re quested Visits Authorized [id number] Closed 12/25/2024 01/25/2026 1 1 Reason for Visit * Radiology Services (Routine) - Closed Specialty Diagnoses / Procedures Referred By Hipolito monterroso Referred To Contact Radiology Diagnoses Screening mammogram, encounter for Procedures MAMMO 3D KENA SCREEN BILAT W OR WO CAD MAMMO 3D KENA SCREEN BILAT W OR WO CAD CHG SCREENING MAMMOGRAPHY BI 2-VIEW BREAST INC CAD CHG SCREENING DIGITAL BREAST TOMOSYNTHESIS BI Nader Sommer MD [address] [place] [address] Phone: tel: fax: [facility] [address] [facility] [address] [place] [address] Phone: tel: fax: Referral ID Status Reason Start Date Expiration Date Visits Re quested Visits Authorized [id number] Closed 12/25/2024 01/25/2026 1 1 Encounter Details Date Type Department Care Team (Latest Contact Info) Description 03/12/2025 11:03 AM CDT - 03/12/2025 11:59 PM CDT Hospital Encounter [facility] [address] [facility] [address] [place] [address] Nader Sommer MD [address] [place] [address] Arrived Discharge Disposition: Home or Self Care Social History Tobacco Use Types Packs/Day Years Used Date Smoking Tobacco: Former Cigarettes Q uit: 07/22/1977 Smokeless Tobacco: Never Alcohol Use Standard Drinks/Week Comments Yes 0 (1 standard drink = 0.6 oz pur e alcohol) Comments No Sex and Gender Information Value Date Recorded Sex Assigned at Not on file 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 Do not fill until patient calls.. 4 Capsule 5 09/07/2015 issac root (ISSAC EXTRACT ORAL) Take 450 mg by mouth daily with breakfast. 08/09/2015 cinnamon bark (CINNAMON ORAL) Take 350 mg by mouth daily with breakfast. 08/09/2015 B.animalis,bifid, infantis,long (PROBIOTIC 4X ORAL) Take 1 Tablet by mouth daily with breakfast. 08/09/2015 RESVERATROL ORAL Take 1 Tablet by mouth daily with breakfast. 08/09/2015 TURMERIC, BULK, MISC 400 mg [place] [facility] [place] ; Combo Route) route 2 times daily. 08/09/2015 magnesium chloride (SLOW-MAG) 64 mg Tablet Sustained Release Take 200 mg by mouth daily with breakfast. 08/09/2015 Lutein 10 mg Tablet Take 1 Tablet by mouth. 08/09/2015 omega-3 fatty acids/fish oil (OMEGA 3 FISH OIL ORAL) Take 2 Tablet by mouth 2 times daily. 08/09/2015 ibuprofen (MOTRIN) 400 mg tablet Take 400 mg by mouth every 6 hours as needed for Pain, Mild. 08/09/2015 aspirin (ECOTRIN EC) 81 mg Tablet, Delayed Release (E.C.) Take 81 mg by mouth daily with breakfast. 08/09/2015 ubidecarenone (COQ-10 ORAL) Take 1 Tablet by mouth daily with breakfast. 08/09/2015 levothyroxine 100 mcg tablet Take 100 mcg by mouth daily psychometrician . 09/19/2014 documented as of this encounter Plan of Treatment Not on file documented as of this encounter Procedures Procedure Name Priority Date/Time Associated Diagnosis Comments MAMMO 3D KENA SCREEN BILAT W OR WO CAD Routine 03/12/2025 11:28 AM CDT Screening mammogram, encounter for documented in this encounter Results * MAMMO 3D KENA SCREEN BILAT W OR WO CAD (03/12/2025 11:28 AM CDT) Anatomical Region Laterality Modality Breast Bilateral Mammography Impressions 03/13/2025 4:02 AM CDT : No mammographic evidence of malignancy. BI-RADS ASSESSMENT: 1 - Negative RECOMMENDATION: Routine annual screening mammography. Narrative 03/13/2025 4:02 AM CDT EXAM: MAMMO SCRN BILAT 3D KENA W OR WO CAD INDICATION: Screening COMPARISON: 03/11/2024 MAMMO PRIOR STUDY, 02/20/2023 MAMMO PRIOR STUDY, 02/16/2022 MAMMO PRIOR STUDY, 02/02/2021 MAMMO PRIOR STUDY, and 02/17/2020 MAMMO PRIOR STUDY BREAST COMPOSITION: There are scattered areas of fibroglandular density. FINDINGS: RIGHT BREAST: There are no suspicious masses, calcifications, or areas of architectural distortion. LEFT BREAST: There are no suspicious masses, calcifications, or areas of architectural distortion. us Nader Sommer MD MAMMO ORDERABLES Final Resul t documented in this encounter Visit Diagnoses Diagnosis Screening mammogram, encounter for documented in this encounter Care Teams Cover Operator Relationship Specialty Start Date End Date Nader Sommer MD [address] [place] [address] PCP - General Family Practice 01/01/13 documented as of this encounter
--- NOTE | 2025-03-15 | XR_ITS ---
Exam: XR ankle LT min 3V* [id number] Date/Time of Exam: 03/15/2025 10:34 AM Reason For Exam: fall Exam: XR ankle LT min 3V* [id number] Date/Time of Exam: 03/15/2025 10:34 AM Reason For Exam: fall DLP: No acute fracture. The ankle mortise is equidistant. Soft tissues are unremarkable. IMPRESSION: 1. No acute fracture. MTDD
[2025-03-15 09:43] VITALS: PULSE 57; RESP 18; TEMP 36.8; O2SAT 95
--- NOTE | 2025-03-15 09:51 | W.ED.FALL ---
HPI - Fall General: Chief Complaint: Fall Stated Complaint: fall - neck pain Source: patient Mode of arrival: EMS Limitations: no limitations History of Present Illness: Patient is an 84-year-old female who presents to ED today for evaluation following a fall. Patient states she was at [employer] when she had turned around with her food tray and states her feet slipped and came out from under me causing her to fall. She states her head struck a mop bucket. No LOC. She arrives in a c-collar and does complain of some neck discomfort. She is also having some soreness to her left ankle and knee. She is not on anticoagulation. MD complaint: fall Onset (ago): hour(s) Fall from: standing Fall witnessed: yes, by bystander Place fall occurred: other (') Loss of consciousness: None Prolonged down time: no Symptoms prior to fall: none Context: tripped/slipped Location of injury: head and neck Location of injury - extremities: Left: knee and ankle Severity: mild Associated symptoms-after fall: Reports no associated symptoms, headache(s) and neck pain; Denies abdominal pain, chest pain, hematuria or lightheadedness Related Data Home Medications ?Medication ?Instructions ?Recorded ?Confirmed aspirin 81 mg tablet,delayed 81 mg PO QAM 08/03/19 03/15/25 release (Adult Low Dose Aspirin) omega-3 fatty acids 1,000 mg 1,000 mg PO BID 08/03/19 03/15/25 capsule multivitamin (Multiple Vitamins 1 tab PO QPM 03/29/20 03/15/25 tablet) L.acidophil-L.casei-B.bifid-B.longum-FOS 1 cap PO QAM 10/03/23 03/15/25 2 billion cell-50 mg capsule (Probiotic Blend) coenzyme Q10 100 mg capsule 100 mg PO QAM 10/03/23 03/15/25 (CoQ-10) psyllium husk 0.4 gram capsule 0.8 g PO DAILY 10/03/23 03/15/25 (Fiber (psyllium husk)) acetaminophen 500 mg tablet 500 mg PO Q6H PRN Fever Or Pain 03/15/25 03/15/25 (Tylenol Extra Strength) ibuprofen 200 mg tablet (Advil) 400 mg PO Q6H PRN Fever Or Pain 03/15/25 03/15/25 magnesium glycinate 120 mg (as 120 mg PO QPM 03/15/25 03/15/25 glycinate) capsule Previous Rx's ?Medication ?Instructions ?Recorded [facility] #2 ea 08/08/22 Right foot prosthetic #1 ea 09/03/23 escitalopram oxalate 10 mg tablet See Rx Instructions .Route 07/02/24 .COMPLEX #90 tabs levothyroxine 100 mcg tablet See Rx Instructions .Route 07/02/24 .COMPLEX #90 tabs losartan 100 mg tablet See Rx Instructions .Route 07/02/24 .COMPLEX #90 tabs C-pap machine - 11-13 #1 ea 07/30/24 C-pap supplies #1 ea 07/30/24 atenolol 50 mg tablet See Rx Instructions .Route 09/26/24 .COMPLEX #270 tabs zolpidem 10 mg tablet (Ambien) 10 mg PO BEDTIME #90 tabs 02/11/25 Allergies Allergy/AdvReac Type Severity Reaction Status Date / Time Iodinated Contrast Media Allergy unknown Verified 11/06/24 14:07 shellfish derived Allergy unknown Verified 11/06/24 14:07 tramadol Allergy unknown Verified 11/06/24 14:07 Review of Systems Eyes: Denies: change in vision, blurry vision, photophobia, eye discharge, floaters or seeing flashes ENMT: Denies: throat pain, odynophagia, ear or mastoid pain, ear discharge, nasal discharge, epistaxis or sinus pain Card: Denies: chest pain, palpitations, lightheadedness, syncope or pre-syncope Resp: Denies: dyspnea or pain on inspiration GI: Denies: abdominal pain : Denies: flank pain or hematuria Musc: Reports: neck pain and joint pain (L knee, ankle); Denies: back pain, extremity pain, joint swelling or limited range of motion Neuro: Reports: headache(s); Denies: numbness in extremities, weakness in extremities, sensory changes or dizziness PFSH ED PFSH: Medical History Osteoarthritis Insomnia History of open sigmoidectomy Hyperlipidemia Hypertension De Quervain's tenosynovitis, right Trigger finger, right middle finger Ventral incisional hernia Venous insufficiency Diverticulitis Primary osteoarthritis of right shoulder Surgical History 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 History of knee surgery Bilateral History of colonoscopy History of elbow surgery Status post reverse total arthroplasty of right shoulder Social History Smoking and tobacco/nicotine status: never used tobacco/nicotine Alcohol intake: never Substance/Drug Use: never Physical Exam Const: COMMON NORMALS: no acute distress, patient oriented x3, no limitations, alert and well nourished GENERAL APPEARANCE: cooperative NUTRITIONAL APPEARANCE: overweight ORIENTATION/CONSCIOUSNESS: Yes awake, Yes oriented to person, Yes oriented to place and Yes oriented to time HENMT: COMMON NORMALS: normocephalic, TM's normal bilaterally and Normal external nose present HEAD & SCALP: normal to inspection, normocephalic and hematoma HEAD IMAGES:  1. hematoma FACE & SINUS: normal facial exam NOSE: Normal external nose present TYMPANIC MEMBRANE: TM's normal bilaterally MOUTH: other (no intraoral injuries noted) Eye: COMMON NORMALS: Equal, round and reactive pupils present and EOMs intact bilaterally GENERAL EYE: appearance normal, both eyes and all related structures and normal light reflex PUPIL: Yes Equal, round and reactive pupils present DIRECT OPHTHALMOSCOPY: Yes normal light reflex Neck/C-Spine: GENERAL: Yes normal visual inspection CERVICAL SPINE: Yes Cervical spine tenderness, No step off deformity and Yes Paracervical muscle tenderness OTHER: c-collar not removed for ROM testing Chest: COMMONS NORMALS: normal inspection of the chest and normal palpation of entire chest wall Resp: COMMON NORMALS: normal respiratory effort and clear to auscultation bilaterally AUSCULTATION: clear to auscultation bilaterally Cardio: COMMON NORMALS: regular rate and regular rhythm RATE: regular rate RHYTHM: regular rhythm GI: COMMON NORMALS: Normal to inspection, nondistended, normoactive bowel sounds present, Soft to palpation, non-tender, No hepatosplenomegaly present and no masses INSPECTION: Yes normal to inspection and No abdominal wall ecchymosis AUSCULTATION: Yes normoactive bowel sounds PALPATION: Yes Soft to palpation and Yes No hepatosplenomegaly present : COMMON NORMALS: Yes no CVA tenderness BLADDER/KIDNEY EXAM: Yes no CVA tenderness Back/Pelvis: COMMON NORMALS: no CVA tenderness, thoracic and lumbar spine normal to inspection, no thoracic nor lumbar tenderness, thoraco-lumbar ROM normal and straight leg raise negative bilaterally Extremity: COMMON NORMALS: normal to inspection, full ROM, capillary refill normal, no joint enlargement, no clubbing, cyanosis or edema, no calf tenderness and no pedal edema GENERAL: Yes normal exam except as noted LEFT LOWER EXTREMITY: Yes knee joint and Yes ankle joint OTHER: mild tenderness with ROM L ankle/knee; no obvious deformites noted; does not complain of hip/pelvis pain; NV intact Neuro: ANAHI COMA SCALE: document GCS findings [place] coma scale eye opening: Spontaneous [place] coma scale verbal response: Orientated [place] coma scale motor response: Obey commands [place] coma scale total score: 15 COMMON NORMALS: patient oriented x3, moves all extremities, no focal motor deficits and no sensory deficits noted SENSORIUM/ORIENTATION: Yes alert, Yes oriented to person, Yes oriented to place and Yes oriented to time SPEECH: speech normal GAIT: Yes Normal gait present Skin: COMMON NORMALS: no rashes or lesions noted GENERAL SKIN EXAM: no rashes or lesions noted TRAUMA: no lacerations or abrasions Course Vital Signs: Vital signs: Vital Signs Temperature 98.2 F 03/15/25 09:43 Pulse Rate 92 03/15/25 10:26 Respiratory Rate 18 03/15/25 09:43 Blood Pressure 195/96 03/15/25 11:08 Pulse Oximetry 95 03/15/25 10:26 Oxygen Delivery Me thod Room Air 03/15/25 10:26 MDM - Fall Medical Decision Making Patient is an 84-year-old female here following a fall. CT imaging of her head and neck obtained that were unremarkable. X-ray imaging of her knee and ankle also obtained. These were unremarkable. She had no other physical complaints. She was ambulatory here in the emergency department without difficulty. She will be allowed discharge with return precautions. Medical Records I reviewed the patient's medical records. Lab Data Radiology Impressions Knee X-Ray 03/15/25 10:07 IMPRESSION: 1. Intact LEFT total knee replacement. No acute finding. Cervical Spine CT 03/15/25 10:08 IMPRESSION: No evidence of acute fracture or dislocation. Head CT 03/15/25 10:08 IMPRESSION: 1. No evidence of intracranial hemorrhage or mass effect. 2. No acute intracranial findings. All radiology interpretation(s) finalized by discharge Discharge Plan Discharge Patient Disposition: Home Clinical Impression: Fall Qualifiers: Encounter type: initial encounter Qualified Code(s): W19.XXXA - Unspecified fall, initial encounter Traumatic hematoma of forehead Qualifiers: Encounter type: initial encounter Qualified Code(s): S00.83XA - Contusion of other part of head, initial encounter Ankle sprain Qualifiers: Encounter type: initial encounter Involved ligament of ankle: unspecified ligament Laterality: left Qualified Code(s): S93.402A - Sprain of unspecified ligament of left ankle, initial encounter Condition: Stable Prescriptions: No Action aspirin [Adult Low Dose Aspirin] 81 mg tablet,delayed release (DR/EC) 81 mg PO QAM omega-3 fatty acids 1,000 mg capsule 1,000 mg PO BID (DME) [facility] See Rx Instructions .Route .MEDSUPPLY Qty: 2 0RF Rx Instructions: As directed (DME) Right foot prosthetic See Rx Instructions .Route .MEDSUPPLY Qty: 1 0RF Rx Instructions: evaluation for right foot prostethic for short limb. (DME) C-pap machine 06-03 See Rx Instructions .Route .MEDSUPPLY Qty: 1 0RF Rx Instructions: humidifier and mask and supplies as needed (DME) C-pap supplies See Rx Instructions .Route .MEDSUPPLY Qty: 1 0RF Rx Instructions: As directed zolpidem [Ambien] 10 mg tablet 10 mg PO BEDTIME Qty: 90 1RF escitalopram oxalate 10 mg tablet See Rx Instructions .ROUTE .COMPLEX Qty: 90 11RF Dose Instruction: TAKE 1 TABLET BY MOUTH EVERY DAY Rx Instructions: TAKE 1 TABLET BY MOUTH EVERY DAY losartan 100 mg tablet See Rx Instructions .ROUTE .COMPLEX Qty: 90 3RF Dose Instruction: TAKE 1 TABLET BY MOUTH ONCE A DAY FOR HYPERTENSION Rx Instructions: TAKE 1 TABLET BY MOUTH ONCE A DAY FOR HYPERTENSION levothyroxine 100 mcg tablet See Rx Instructions .ROUTE .COMPLEX Qty: 90 3RF Dose Instruction: TAKE 1 TABLET BY MOUTH EVERY DAY Rx Instructions: TAKE 1 TABLET BY MOUTH EVERY DAY atenolol 50 mg tablet See Rx Instructions .ROUTE .COMPLEX Qty: 270 3RF Dose Instruction: TAKE TWO TABLETS BY MOUTH EVERY MORNING AND ONE TAB EVERY EVENING Rx Instructions: TAKE TWO TABLETS BY MOUTH EVERY MORNING AND ONE TAB EVERY EVENING multivitamin [Multiple Vitamins] Tablet 1 tab PO QPM acetaminophen [Tylenol Extra Strength] 500 mg Tablet 500 mg PO Q6H PRN (Reason: Fever Or Pain) ibuprofen [Advil] 200 mg Tablet 400 mg PO Q6H PRN (Reason: Fever Or Pain) magnesium glycinate 120 mg Capsule 120 mg PO QPM coenzyme Q10 [CoQ-10] 100 mg Capsule 100 mg PO QAM psyllium husk [Fiber (psyllium husk)] 0.4 gram Capsule 0.8 g PO DAILY Probiotic Blend 2 billion cell-50 mg Capsule 1 cap PO QAM Discharge Orders: Discharge ED (Routine); Ordered 03/15/25 Ordered By: Zuleika Ramirez Referrals: Nader Sommer MD [Primary Care Provider, [facility]] Patient Instructions: Patient Portal & Kamini Instructions Activity Restrictions/Additional Instructions: As we discussed, x-ray imaging of your left ankle and knee were obtained and unremarkable. You also underwent CT imaging of your head and neck both of which were also unremarkable. You were ambulatory here in the emergency department. At this time you will be allowed discharge. We spoke about conservative therapies including [id number]-[id number] analgesics as well as ice and heat to help with any discomfort. You may follow-up with primary care in 1 to 2 weeks if symptoms do not begin to improve. You may return to the emergency department at anytime for any further concerns you may have. I hope you begin to feel better soon. Print Language: Yi Coding Level of Care Code ED Dining Room Busser for David Ahumada
--- OUTSIDE RECORDS SUMMARY | 2025-03-15 09:52 | XMS_ITS | Clinical Summary ---
Author Organization [facility] Address [address] [place] [address] Care Team Providers Care Circular Saw Filer Name Role Phone Nader Sommer MD Primary Care Provider Allergies Active Allergy Reactions Criticality Noted Date Comments Hydromorphone (Bulk) Hypotension High 08/12/2014 Iodinated Contrast Media Other (See Comments) High 1 08/29/2013 Cardiac arrest Morphine (Pf) Hives,Itching,Hypote n eduardo High 05/25/2015 Shellfish Containing Products Swelling Low 08/12/2014 Tramadol Seizure High 01/01/2013 Medications atenolol (TENORMIN) 100 mg Oral tablet Take 100 mg by mouth daily before breakfast . Active MOMETASONE FUROATE (NASONEX BOTH NOSTRIL) Administer 1 [place] in each nostril 1 time daily as needed . Active zolpidem (AMBIEN) 10 mg Oral tablet Take 5 mg by mouth nightly as needed . Active IPRATROPIUM/ALB UTEROL SULFATE (COMBIVENT INHALATION) Take 1 Puff by inhalation 2 times daily as needed . Active multivitamin (DAILY MULTI-VITAMIN) Oral tablet Take 1 Tablet by mouth daily at bedtime . Active esomeprazole (NEXIUM) 20 mg Capsule, Delayed Release(E.C.) Take 20 mg by mouth daily before breakfast. Active LEVOTHYROXINE 100 mcg tablet Take 100 mcg by mouth daily paper steamer . 5 Active aspirin (ECOTRIN EC) 81 mg Tablet, Delayed Release (E.C.) Take 81 mg by mouth daily with breakfast. Active ibuprofen (MOTRIN) 400 mg tablet Take 400 mg by mouth every 6 hours as needed for Pain, Mild. Active RESVERATROL ORAL Take 1 Tablet by mouth daily with breakfast. Active OMEGA-3 FATTY ACIDS/FISH OIL (OMEGA 3 FISH OIL ORAL) Take 2 Tablet by mouth 2 times daily. Active UBIDECARENONE (COQ-10 ORAL) Take 1 Tablet by mouth daily with breakfast. Active TURMERIC, BULK, MISC 400 mg by Misc.(Non-Drug; Combo Route) route 2 times daily. Active Lutein 10 mg Tablet Take 1 Tablet by mouth. Active magnesium chloride (SLOW-MAG) 64 mg Tablet Sustained Release Take 200 mg by mouth daily with breakfast. Active B INFANTIS/B ANI/B DEBBI/B BIFID (PROBIOTIC 4X ORAL) Take 1 Tablet by mouth daily with breakfast. Active FRANK ROOT (FRANK EXTRACT ORAL) Take 450 mg by mouth daily with breakfast. Active CINNAMON BARK (CINNAMON ORAL) Take 350 mg by mouth daily with breakfast. Active cephALEXin (KEFLEX) 500 mg capsule Take 4 tablets 1 hour prior to dental procedures. Do not fill until patient calls.. 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 06/08/2015 S/P carpal tunnel release, Right on 11/11/1402/2015 Right carpal tunnel syndrome 11/11/2014 S/P cubital tunnel release, left on 08/12/1412/2014 S/P hardware removal, partial, left elbow on 08/27/2014 Retained orthopedic hardware 08/12/2014 Left wrist pain 08/12/2014 Ulnar neuropathy 07/21/2014 Trigger thumb 06/02/2014 Trigger index finger of right hand 01/01/2013 Trigger middle finger of right hand 01/01/2013 Trigger ring finger of right hand 01/01/2013 Cubital tunnel syndrome on left 01/01/2013 Trigger middle finger of left hand 01/01/2013 Trigger index finger of left hand 01/01/2013 Asthma Essential hypertension Hyperlipidemia Hypothyroidism CLAUDETTE on CPAP Gastroesophageal reflux disease Family History Medical History Relation Name Comments Healthy Brother Chino COPD Father Rey Heart Disease Father Rey Other Father Rey arthrosclerosis dz Arthritis-osteo Mother Delfina Arthritis-rheumatoid Mother Delfina Diabetes Mother Delfina Other Mother Delfina passed from end stage renal failure Healthy Sister 1 Tracy Healthy Sister 2 Ruth Relation Name Status Comments Brother [place] Alive Father Rey (Age 80) Mother Delfina (Age 74) Sister 1 Tracy Alive Sister 2 Ruth Alive Social History Tobacco Use Types Packs/Day Years Used Date Smoking Tobacco: Former Cigarettes 1 10 0 07/22/1967 - 07/22/1977 Smokeless Tobacco: Never Alcohol Use Standard Drinks/Week Comments Yes 0 (1 standard drink = 0.6 oz pur e alcohol) mixed drink 1 every 2 yrs Comments No Sex and Gender Information Value Date Recorded Sex Assigned at Not on file Legal Sex Female 6:50 AM OFFSET PLATEMAKER Gender Identity Not on file Sexual Orientation Not on file Occupation Industry Job Start Date Job End Date Not on file Not on file Not on file Not on file Last Filed Vital Signs Vital Sign Reading Time Taken Comments Blood Pressure 153/73 07/09/2018 2:17 PM OFFSET PLATEMAKER Pulse 55 07/09/2018 2:17 PM OFFSET PLATEMAKER Temperature 36.6 C (97.8 F) 08/24/2015 10:44 AM OFFSET PLATEMAKER Respiratory Rate 18 08/24/2015 10:44 AM OFFSET PLATEMAKER Oxygen Saturation 94% 08/24/2015 10:44 AM OFFSET PLATEMAKER Inhaled Oxygen Concentration - - Weight 98 kg (216 lb) 07/09/2018 2:17 PM OFFSET PLATEMAKER Height 172.7 cm (5' 8 ) 07/09/2018 2:17 PM OFFSET PLATEMAKER Body Mass Index 32.84 07/09/2018 2:17 PM OFFSET PLATEMAKER Plan of Treatment Health Maintenance Due Date Last Done Comments DTAP/TDAP/TD VACCINES (1 - Tdap) 1961 PNEUMOCOCCAL VACCINE 50+ YEARS (1 of 2 - PCV) 05/04/19 61 ZOSTER VACCINE (1 of 2) 1992 RSV VACCINE (60+ or ) (1 - 1-dose 75+ series) 2017 OSTEOPOROSIS SCREENING 04/12/2021 04/12/2016 INFLUENZA VACCINE (#1) 2025 Medical Devices Implanted Type Area Manager Skilled Device Identifier Shelf Expiration Date Model / Serial / Lot Cement Simplex Hvisc 6194-1-001 - [id number] Implanted:Qty: 1 on 08/23/2015 by Amrik Shelton MD at [facility] Cement Left: Shoulder [employer] 12/19/2016 6194-1-00 1 / / [id number] W Pin Bel Thrd Tip [id number] - [id number] Implanted:Qty: 1 on 08/23/2015 by Amrik Shelton MD at [facility] Pin Left: Shoulder [employer] 07/21/2025 [id number] / / [id number] Post Glnd Mod Hybrid Regenerex [id number] - [id number] Implanted:Qty: 1 on 08/23/2015 by Amrik Shelton MD at [facility] Shoulder Left: Shoulder [employer] 07/05/2025 [id number] / / [id number] Glenoid Base Hybrid Cmprhnsv [id number] - [id number] Implanted:Qty: 1 on 08/23/2015 by Amrik Shelton MD at [facility] Shoulder Left: Shoulder [employer] 06/23/2020 [id number] / / [id number] Explanted Type Area Manager Skilled Device Identifier Shelf Expiration Date Model / Serial / Lot Screw Explanted:Qty: 1 on 08/12/2014 by Chino Sibley MD at [facility] Left: Elbow N/A / N/A / N/A Insurance MEDICARE PART A AND B [facility] Advance Directives For more information, please contact: [phone] Documents on File Type Date Recorded Patient Protection Consultant Expl anation Advance Directive POA 01/01/2013 2:42 PM A dvance Directive POA * Full Code (Latest Code Status on File) Date Activated Date Inactivated Comments 08/23/2015 5:04 PM 08/24/2015 4:24 PM * Full Code Date Activated Date Inactivated Comments 08/23/2015 10:55 AM 08/23/2015 5:04 PM * Full Code Date Activated Date Inactivated Comments 11/11/2014 1:17 PM 11/11/2014 7:01 PM * Full Code Date Activated Date Inactivated Comments 08/12/2014 8:41 AM 08/12/2014 2:58 PM * Full Code Date Activated Date Inactivated Comments 08/12/2014 7:57 AM 08/12/2014 8:41 AM Care Teams Circular Saw Filer Relationship Specialty Start Date End Date Nader Sommer MD [address] [place] [address] PCP - General Family Practice 01/01/13
--- OUTSIDE RECORDS SUMMARY | 2025-03-15 09:52 | XMS_ITS | Clinical Summary ---
Author Organization [facility] Address [address] Ngn: [place] [address] Care Team Providers Care Wood Inspector Name Role Phone Nader Sommer MD Primary Care Provider [phone] Allergies Active Allergy Reactions Criticality Noted Date Comments Hydromorphone (Bulk) Hypotension High 08/12/2014 Iodinated Contrast Media Other (See Comments) High 1 08/29/2013 Cardiac arrest Morphine (Pf) Hives,Itching,Hypote n eduardo High 05/25/2015 Shellfish Containing Products Swelling Low 08/12/2014 Tramadol Seizure High 01/01/2013 Medications cephALEXin (KEFLEX) 500 mg capsule Take 4 tablets 1 hour prior to dental procedures. Do not fill until patient calls.. 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 09/19/2014 Active issac root (ISSAC EXTRACT ORAL) Take 450 mg by mouth daily with breakfast. 08/09/2015 Active cinnamon bark (CINNAMON ORAL) Take 350 mg by mouth daily with breakfast. 08/09/2015 Active B.animalis,bifi d,infantis,long (PROBIOTIC 4X ORAL) Take 1 Tablet by mouth daily with breakfast. 08/09/2015 Active RESVERATROL ORAL Take 1 Tablet by mouth daily with breakfast. 08/09/2015 Active TURMERIC, BULK, MISC 400 mg by Misc.(Non-Dr ug; Combo Route) route 2 times daily. 08/09/2015 Active magnesium chloride (SLOW-MAG) 64 mg Tablet Sustained Release Take 200 mg by mouth daily with breakfast. 08/09/2015 Active Lutein 10 mg Tablet Take 1 Tablet by mouth. 08/09/2015 Active omega-3 fatty acids/fish oil (OMEGA 3 FISH OIL ORAL) Take 2 Tablet by mouth 2 times daily. 08/09/2015 Active losartan (COZAAR) 100 mg tablet 05/15/2016 Active ibuprofen (MOTRIN) 400 mg tablet Take 400 mg by mouth every 6 hours as needed for Pain, Mild. 08/09/2015 Active aspirin (ECOTRIN EC) 81 mg Tablet, Delayed Release (E.C.) Take 81 mg by mouth daily with breakfast. 08/09/2015 Active ubidecarenone (COQ-10 ORAL) Take 1 Tablet by mouth daily with breakfast. 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 S/P carpal tunnel release, Right on 11/11/1402/2015 Right carpal tunnel syndrome 11/11/2014 S/P cubital tunnel release, left on 08/12/1412/2014 S/P hardware removal, partial, left elbow on 08/27/2014 Retained orthopedic hardware 08/12/2014 Left wrist pain 08/12/2014 Ulnar neuropathy 07/21/2014 Trigger thumb 06/02/2014 Trigger index finger of right hand 01/01/2013 Cubital tunnel syndrome on left 01/01/2013 Trigger middle finger of left hand 01/01/2013 Trigger ring finger of right hand 01/01/2013 Trigger middle finger of right hand 01/01/2013 Trigger index finger of left hand 01/01/2013 Asthma Hyperlipidemia Hypothyroidism Gastroesophageal reflux disease Essential hypertension CLAUDETTE on CPAP Encounters Date Type Department Care Team Description 03/12/2025 11:03 AM CDT - 03/12/2025 11:59 PM CDT Hospital Encounter [facility] [address] [facility] [place] [id number] Nader Sommer MD Arrived Discharge Disposition: Home or Self Care 02/16/2025 External Device Data STL ABSTRACTION Provider, Abstract 02/16/2025 External Device Data STL ABSTRACTION Provider, Abstract 02/16/2025 External Device Data STL ABSTRACTION Provider, Abstract 12/25/2024 Transcribe Orders [facility] Centralized Scheduling [facility] CALL TO MAKE APPOINTMENT ONLY [address] [place] [id number] Nader Sommer MD Screening mammogram, encounter for (Primary Dx) from Last 3 Months Family History Medical History Relation Name Comments Healthy Brother Chino COPD Father Rey Heart Disease Father Rey Other Father Rey arthrosclerosis dz Arthritis-osteo Mother Delfina Arthritis-rheumatoid Mother Delfina Diabetes Mother Delfina Other Mother Delfina passed from end stage renal failure Uterine or Endometrial Cance r, Not Including Cervical Mother Delfina Healthy Sister 1 Ruth Healthy Sister 2 Tracy Breast Cancer Neg Hx Cancer - Other Neg Hx Melanoma Neg Hx Ovarian Cancer Neg Hx Pancreatic Cancer Neg Hx Relation Name Status Comments Brother Chino Alive Father Rey (Age 80) Mother Delfina (Age 74) Sister 1 Ruth Alive Sister 2 Tracy Alive Social History Tobacco Use Types Packs/Day Years Used Date Smoking Tobacco: Former Cigarettes Q uit: 07/22/1977 Smokeless Tobacco: Never Alcohol Use Standard Drinks/Week Comments Yes 0 (1 standard drink = 0.6 oz pur e alcohol) Comments No Sex and Gender Information Value Date Recorded Sex Assigned at Not on file Legal Sex Female 8:04 AM PUBLIC RELATIONS Gender Identity Not on file Sexual Orientation Not on file Last Filed Vital Signs Vital Sign Reading Time Taken Comments Blood Pressure 153/73 07/09/2018 2:17 PM PUBLIC RELATIONS Pulse 55 07/09/2018 2:17 PM PUBLIC RELATIONS Temperature 36.6 C (97.8 F) 08/24/2015 10:44 AM PUBLIC RELATIONS Respiratory Rate 18 08/24/2015 10:44 AM PUBLIC RELATIONS Oxygen Saturation - - Inhaled Oxygen Concentration - - Weight 98 kg (216 lb) 07/09/2018 2:17 PM PUBLIC RELATIONS Height 172.7 cm (5' 8 ) 07/09/2018 2:17 PM PUBLIC RELATIONS Body Mass Index 32.84 07/09/2018 2:17 PM PUBLIC RELATIONS Plan of Treatment Health Maintenance Due Date Last Done Comments DTAP/TDAP/TD VACCINES (1 - Tdap) 1961 ZOSTER VACCINE (1 of 2) 1992 RSV VACCINE (60+ or ) (1 - 1-dose 75+ series) 2017 OSTEOPOROSIS SCREENING 04/12/2021 04/12/2016 COVID-19 Vaccine (2023-2 5 season) 2024 04/21/2024, 05/14/2023, 04/17/2022, Additional history exists INFLUENZA VACCINE (#1) 2025 04/24/2023, 2021 PNEUMOCOCCAL VACCINE 50+ YEARS Completed 07/08/2024 Medical Devices Implanted Type Area Acoustic Warfare Analyst Device Identifier Shelf Expiration Date Model / Serial / Lot Cement Simplex Hvisc 6194-1-001 - [id number] Implanted:Qty : 1 on 08/23/2015 by Amrik Shelton MD Cement Left: Shoulder [employer] 12/19/2016 6194-1-00 / [id number] W Pin Bel Thrd Tip [id number] - [id number] Implanted:Qty : 1 on 08/23/2015 by Amrik Shelton MD Pin Left: Shoulder [employer] 07/21/2025 [id number] / / [id number] Glenoid Base Hybrid Cmprhnsv [id number] - [id number] Implanted:Qty : 1 on 08/23/2015 by Amrik Shelton MD Shoulder Left: Shoulder [employer] 06/23/2020 [id number] / / [id number] Post Glnd Mod Hybrid Regenerex Pt-[id number] - [id number] Implanted:Qty : 1 on 08/23/2015 by Amrik Shelton MD Shoulder Left: Shoulder [employer] 07/05/2025 [id number] / / [id number] Explanted Type Area Acoustic Warfare Analyst Device Identifier Shelf Expiration Date Model / Serial / Lot Screw Explanted:Qty: 1 on 08/12/2014 by Chino Sibley MD Left: Elbow N/A / N/A / N/A Procedures Procedure Name Priority Date/Time Associated Diagnosis Comments MAMMO 3D KENA SCREEN BILAT W OR WO CAD Routine 03/12/2025 11:28 AM CDT Screening mammogram, encounter for from Last 3 Months Results * MAMMO 3D KENA SCREEN BILAT [...] Sommer MD MAMMO ORDERABLES Final Resul t from Last 3 Months Insurance [id number] [place] [address] [employer] H[employer] Care Teams Wood Inspector Relationship Specialty Start Date End Date Nader Sommer MD [address] [place] [address] PCP - General Family Practice 01/01/13
--- NOTE | 2025-03-15 10:07 | XR_ITS ---
WS: [id number] Exam: XR knee LT 3V* [id number] Date/Time of Exam: 03/15/2025 10:34 AM Reason For Exam: fall Comparison 07/01/2023. LEFT total knee replacement remains in satisfactory alignment. No fracture or loosening. No joint effusion. Normal soft tissues. XR/XR knee LT 3V* [id number] IMPRESSION: 1. Intact LEFT total knee replacement. No acute finding.
--- NOTE | 2025-03-15 10:08 | CT_ITS ---
WS: [id number] CT CERVICAL TRAUMA TECHNIQUE: Noncontrast CT of the cervical spine with coronal and sagittal reformatted images. CLINICAL INFORMATION: trauma COMPARISON: None. DLP: 1349.[address] scans at [facility] use at least one of these dose optimization techniques: automated exposure control; mA and/or kV adjustment per patient size (includes targeted exams where dose is matched to clinical indication); or iterative reconstruction. FINDINGS: Straightening of the normal cervical lordosis. Moderate spondylitic changes. Ankylosis cervical spine. Normal craniocervical junction. Normal C1-C2 articulation. Dens is normal in appearance. Normal occipital condyles. No high- grade spinal canal narrowing. Normal C1 ring. No evidence of acute fracture or dislocation. Normal prevertebral soft tissues. Mastoids air cells are well aerated. CT/CT cervical spin wo con* [id number] IMPRESSION: No evidence of acute fracture or dislocation.
--- NOTE | 2025-03-15 10:08 | CT_ITS ---
WS: [id number] CT HEAD TECHNIQUE: Noncontrast CT of the head obtained from the skullbase to the vertex. CLINICAL INFORMATION: trauma COMPARISON: 2023 DLP: 1349.[address] scans at [facility] use at least one of these dose optimization techniques: automated exposure control; mA and/or kV adjustment per patient size (includes targeted exams where dose is matched to clinical indication); or iterative reconstruction. FINDINGS: No evidence of intracranial hemorrhage or mass effect. Ventricular system and basal cisterns are patent. Mild small vessel changes with moderate parenchymal volume loss. No extra-axial fluid collections. No evidence of mass or mass effect. Vascular calcification Opacification sphenoid sinuses. Mastoid air cells are well aerated. Soft tissue edema overlying the LEFT frontal calvarium CT/CT head wo con* [id number] IMPRESSION: 1. No evidence of intracranial hemorrhage or mass effect. 2. No acute intracranial findings.
[2025-03-15 10:26] VITALS: PULSE 92; O2SAT 95
[2025-03-15 11:08] VITALS: BP 195/96
[2025-03-15 11:43] VITALS: BP 181/92; PULSE 63; O2SAT 97
== END 2025-03-15 11:44 | disposition home or self-care (01) ==
PROVIDERS: Emergency Provider Physician Assistant; PCP Family Medicine
DX: S00.83XA Contusion of other part of head, initial encounter (principal); S93.402A Sprain of unspecified ligament of left ankle, initial encounter; W01.0XXA Fall on same level from slipping, tripping and stumbling without subsequent striking against object, initial encounter; Y92.511 Restaurant or cafe as the place of occurrence of the external cause
CPT/HCPCS: 70450; 72125; 73562; 73610; 99284

== ENCOUNTER → 2025-03-18 09:31 | Outpatient (BNVA) | payer MEDICARE, SELFPAY | PROVIDERS: PCP Family Medicine; Visit Provider Dermatology | DX: L20.89 Other atopic dermatitis (principal); D22.5 Melanocytic nevi of trunk | CPT/HCPCS: 99203 ==

== ENCOUNTER → 2025-03-19 09:38 | Outpatient (BNVA) | payer MEDICARE, SELFPAY | PROVIDERS: PCP Family Medicine; Visit Provider Specialist | DX: M18.11 Unilateral primary osteoarthritis of first carpometacarpal joint, right hand (principal); M18.12 Unilateral primary osteoarthritis of first carpometacarpal joint, left hand | CPT/HCPCS: 20600; J1100; J2795; J3301; J9999 ==

== ENCOUNTER → 2025-06-25 10:47 | Outpatient (BNVA) | payer MEDICARE, SELFPAY | PROVIDERS: PCP Family Medicine; Visit Provider Specialist | DX: M18.11 Unilateral primary osteoarthritis of first carpometacarpal joint, right hand (principal); M18.12 Unilateral primary osteoarthritis of first carpometacarpal joint, left hand | CPT/HCPCS: 20600; J1100; J2795; J3301; J9999 ==